=== PATIENT | female | born 1980 | race Caucasian/White ===

== ENCOUNTER → 2017-08-08 06:47 | Outpatient (CLI) | payer OTHER, SELFPAY ==
--- NOTE | 2017-08-08 06:46 | CT_ITS ---
STUDY: CT MAXILLOFACIAL SINUSES REASON FOR EXAM: Female, 37 years old. Sinusitis RADIATION DOSAGE (If Supplied By Facility): CTDIvol = ( 33.06 ) mGy, DLP = ( 730.55 ) mGycm TECHNIQUE: The patient was scanned in a multi detector CT scanner. High resolution axial imaging was performed without the administration of intravenous contrast material. Sagittal and coronal images were reconstructed. Individualized dose optimization techniques were used for this CT. COMPARISON: None. FINDINGS: FRONTAL SINUSES: Weeks retention cyst overlying the ostium of the left frontal sinus. Mild mucoperiosteal thickening within the left frontal sinus otherwise. Right frontal sinus clear. ETHMOIDAL SINUSES: B comparison thickening within the left anterior ethmoids abutting the left frontal sinus ostium. Resection of the majority of the right ethmoid sinuses up to the opening of the right frontal sinus ostium. MAXILLARY SINUSES: Circumferential mucoperiosteal thickening of the maxillary sinuses, prior antrectomy. SPHENOIDAL SINUSES: Normal aeration, without mucosal inflammatory disease. The mastoid air cells and middle ear cavities are clear. Symmetric and grossly normal features of the vestibular and acoustic apparatus of the temporal bones. Craniofacial osseous structures acutely intact. Orbital contents normal. Superficial and deep facial soft tissues normal. CT/Sinus/Facial Bone IMPRESSION: Chronic sinus disease and postsurgical changes of the sinuses as described above. Electronically Signed: Reinaldo Sparrow, at 0:02 EDT Tel , Service support ,
== END ==
PROVIDERS: Family Provider Internal Medicine; PCP Internal Medicine; Visit Provider Otolaryngology
DX: J32.1 Chronic frontal sinusitis (principal)
CPT/HCPCS: 70486

== ENCOUNTER 2017-08-28 06:04 | Day surgery (SDC) | payer OTHER, SELFPAY ==
[2017-08-28] VITALS (7 sets, daily range): BP systolic 91–126; BP diastolic 41–80; PULSE 70–80; RESP 16–18; TEMP 35.8–36.2; O2SAT 92–100; BMI 53.8
--- NOTE | 2017-08-28 06:17 | EKG12_ITS ---
Test Reason : PRE-OP Blood Pressure : / mmHG Vent. Rate : 062 BPM Atrial Rate : 062 BPM P-R Int : 152 ms QRS Dur : 102 ms QT Int : 422 ms P-R-T Axes : 050 036 044 degrees QTc Int : 428 ms Normal sinus rhythm with sinus arrhythmia Normal ECG Confirmed by HEATHER MOE, HAZEL ([id number]), purchase request editor BHARAT AU ([id number]) on 09/04/2017 10:03:52 AM Referred By: Zaire Galindo Confirmed By:HAZEL ROMERO MD
[2017-08-28 06:33] LABS: Internal QC Validated? YES +Cl - CLEAR BKGD; Pregnancy, Urine Negative Negative
[2017-08-28 06:34] LABS: Hematocrit 37.7 % (37-47); Hemoglobin 12.9 g/dl (12.0-15.0); Mean Corp Hgb Conc 34.2 g/gl (32-36); Mean Corpuscular Hgb 30.3 pg (27.0-32.0); Mean Corpuscular Volume 88.5 fL (81-99); Mean Platelet Vol. 9.5 fl (6.2-12.0); Platelet Count 245 K/mm3 (150-450); RBC Distribution Width CV 12.8 % (11.6-14.6); RBC Distribution Width SD 40.9 fl (35.1-43.9); Red Blood Count 4.26 M/mm3 (4.2-5.4); White Blood Count 6.9 K/mm3 (4.4-11.0)
[2017-08-28 06:35] LABS: Scan Indicated on CBC? Y/N NO
[2017-08-28 06:58] LABS: Anion Gap 6 (5-15); BUN 13 mg/dL (7-18); BUN/Creat Ratio 16.2 RATIO (10-20); Calcium,Total 8.5 mg/dL (8.5-10.1); Chloride 108 mmol/L (98-107); EST Glomerular Filtration Rate 85 mL/min (>60); Est Glom Filt Rate - Afr Amer 103 mL/min (>60); Estimated Creatinine Clearance 69.16 ml/min; Glucose 83 mg/dL (74-106); Potassium 3.7 mmol/L (3.5-5.1); Sodium Level 141 mmol/L (136-145)
--- NOTE | 2017-08-28 07:30 | ETH_PTH ---
PATIENT: JAROD HERRERA [place] [facility] [place][id number] AGE/SX: 37/F ROOM: RE08/28/[address]: Dr. Zaire Galindo MD : 1980 BED: DIS: 08/28/2017 SPEC #: [id number] RECD: 08/28/17 11:13 STATUS: MARIA ESTHER MADIE #: [id number] THERESA: 08/28/17 07:[address]: Zaire Galindo DEPT: SURGICAL PATHOLOGY RECD BY: Reinaldo Pittman ENTERED: 08/28/17 12:03 SP TYPE: ETH TISS OTHR DR: Dr. Marya Ye DO Tissues: Ethmoid sinus, NOS Procedures: Special Stain Group I Surgery Specimen Level IV GMS Stain (control) HEADER OPERATION: Functional endoscopic left frontal sinus surgery; left maxillary antrostomy PRE-OP DIAGNOSIS: Chronic frontal sinusitis, chronic maxillary sinusitis TISSUE SUBMITTED: Left sinus contents MICROSCOPIC DIAGNOSIS Left sinus contents: Fragments of respiratory mucosa with acute and chronic inflammation and bone. Special stain for fungi is negative for organisms; matched control is appropriate. MORRO:anna 08/31/17 MICROSCOPIC DESCRIPTION Slides are reviewed. GROSS DESCRIPTION Received in fixative is one container labeled with the patient's name and designated left sinus contents. The specimen consists of multiple irregular fragments of pink, congested soft tissue that in aggregate measure 5 x 3 x 0.8 cm. The entire specimen is submitted in four cassettes. / MORRO:anna 08/28/17 TC:2 CPT: 72819, 59818
[2017-08-28] MEDS: Lidocaine 4% 50 ML Bottle (07:50)
[2017-08-28] MEDS: Oxymetazoline 0.05% 1 SPRAY SPRAY.BTL 15 SPRAY (07:50)
--- NOTE | 2017-08-28 08:50 | OP.PCM_ITS ---
Problem List (1) Chronic frontal sinusitis Status: Chronic (2) Chronic maxillary sinusitis Status: Chronic Report of Operation Date of Procedure: 08/28/17 Pre-Operative Diagnosis: Chronic frontal and maxillary sinusitis Post-Operative Diagnosis: same Surgery/Procedure Performed:: Left endoscopic surgery of the frontal sinus, left endoscopic maxillary antrostomy Description of Surgical Findings:: Jelly is a 37-year-old female with history of chronic sinusitis and is previous sinus surgery. She continued to suffer a bandlike headache and left frontal sinus pain and CT scan showed ongoing disease of the left frontal sinus with obstruction of the frontonasal recess by an obstructing sinus cell. Revision surgery was offered in hopes of relief of this complaint and she was eager to proceed. The risks, alternatives, potential benefits, and complications were discussed at length and any questions answered to the patient and/or caregiver's satisfaction. Witnessed informed consent was obtained in the office, and the patient and/or caregiver was agreeable to proceed. Procedure went as follows: The patient was identified in the preoperative holding and brought to the operating room, was placed under general anesthesia and intubated. When appropriate anesthesia was obtained, the navigational head gear was placed and confirmed to be operational in accordance with the creping machine operator helper's directions. Pledgets soaked in a 50-50 mixture of oxymetazoline and 4% topical lidocaine were placed to decongest the nasal mucosa. These were then removed and beginning on the left side using a 0? endoscope the nasal cavity examined. The insertion of the middle turbinate and uncinate process was then injected with 1% lidocaine with 100,000 epinephrine for a 2 cc total. There is noted to be significant scar banding in obstruction of the frontal nasal recess on the left side. This was additionally injected with 1% lidocaine of 100,000 epinephrine for a total of 1 cc. Using an up-biting forceps the scar band was then removed as well as the bony septum of the anterior ethmoid air cell that was obstructing the frontonasal recess. The frontonasal sinus was then explored and a wide frontal osteotomy created. Significant separative material was aspirated and irrigated clear with saline solution. Additionally there is noted to be significant crusting and retention of debris likely due to her prior sinus stripping procedure with obliteration of the respiratory epithelium and this was suctioned clear bilaterally. There was significant stenosis and scar banding obstructing the left maxillary sinus ostia and this was then revised and widely opened with a front and back biting forceps. Upon completion pledgets soaked in oxymetazoline and 4% topical lidocaine were placed for hemostasis. This completed the procedure. An NG tube was then placed to decompress the stomach and the patient returned to anesthesia, revived and extubated having tolerated the procedure well. Type of Anesthesia:: General Anesthesiologist: Mario Almonte Special Medications: none Specimen's removed: sinus tissue Drains: none Estimated Blood Loss (mL): 50 mL Fluids Replaced: 400 mL Grafts/Implants Used: none - Complications none - Admit VTE Documentation VTE Present on Admission: No VTE Mechan Device Prophylaxis: SCD's VTE Pharm Prophylaxis ordered?: No
--- NOTE | 2017-08-28 08:50 | PCM.DC ---
- Discharge Diagnoses Current Active Problems: Current Active and Chronic Problems Chronic frontal sinusitis (Chronic) Chronic maxillary sinusitis (Chronic) You will use the following diet at home:: No restrictions Discharge Activity: Return to Normal Activity, May not drive while taking narcotic pain medications. Call your doctor if your incision/area has: Sudden Increased Bleeding Call your doctor if you observe: Fever of 101 or Higher, Uncontrolled pain Allergies/Adverse Reactions: Allergies cephalexin monohydrate [From Keflex] Allergy (Verified 08/28/17 06:38) Unknown latex Allergy (Verified 08/28/17 06:38) Rash Medications to take at Discharge Naproxen Sodium [Aleve] 440 mg PO DAILY 08/28/17 Primary Care Physician: Marya Ye DO [Primary Care Provider] - Please Follow Up With: Zaire Galindo MD When: 10 days
[2017-08-28] MEDS: Ibuprofen 400 MG Tablet PO (10:10)
== END 2017-08-28 10:37 | disposition home or self-care (01) ==
LOC: SDC 06:04 → AC 06:05
PROVIDERS: Family Provider Internal Medicine; PCP Internal Medicine; Visit Provider Otolaryngology
PROC: (CPT 31256; principal; 2017-08-28 07:00)
DX: J32.1 Chronic frontal sinusitis (principal); J32.0 Chronic maxillary sinusitis; G47.30 Sleep apnea, unspecified; J45.909 Unspecified asthma, uncomplicated; Z79.899 Other long term (current) drug therapy
CPT/HCPCS: 31256; 31276; 36415; 80048; 81025; 85027; 88305; 88312; 93005; J7120; J2405

== ENCOUNTER → 2017-11-30 10:47 | Outpatient (CLI) | payer OTHER, SELFPAY ==
--- NOTE | 2017-11-30 10:50 | RAD_ITS ---
STUDY: X-RAY CHEST REASON FOR EXAM: Female, 37 years old. Right lateral rib pain and substernal chest pain. Previous rib injury after coughing. TECHNIQUE: PA and lateral views of the chest. COMPARISON: Right RIBS, July 19, 2015. Chest, July 19, 2015. FINDINGS: The lungs are clear and expanded. There is no demonstrated pleural abnormality. Normal size heart. Normal mediastinum and iliana. Normal visualized pulmonary arteries. Normal visualized aortic arch and descending thoracic aorta. There are minimal degenerative changes of the thoracic spine. Normal visualized ribs, clavicles, and shoulders. There is no demonstrated abnormality of the visualized soft tissue structures of the upper abdomen. RAD/Chest PA and Lateral IMPRESSION: No acute cardiopulmonary disease or interval change. Electronically Signed: Marshall Brown DO at 17:13 EDT Tel [phone], Service support ,
== END ==
PROVIDERS: Family Provider Internal Medicine; PCP Internal Medicine; Visit Provider Nurse Practitioner
DX: R07.81 Pleurodynia (principal)
CPT/HCPCS: 71046

== ENCOUNTER → 2017-12-21 07:37 | Outpatient (CLI) | payer OTHER, SELFPAY ==
--- NOTE | 2017-12-21 07:45 | US_ITS ---
STUDY: RENAL ULTRASOUND - COMPLETE REASON FOR EXAM: Female, 37 years old. Right-sided abdominal pain for 4 years following drip fractures. TECHNIQUE: Ultrasound evaluation of the kidneys was performed with real-time and static norton-scale imaging. COMPARISON: None. FINDINGS: RIGHT KIDNEY: Normal location of the right kidney, which is normal in size. The right kidney measures 11.8 x 5.5 x 5.2 cm. There is a normal cortex of the right kidney. The renal cortex measures 1.7 cm. There is no right renal mass or cyst. There are no right renal calculi. There is no right hydronephrosis. DISTAL RIGHT URETER: There is non-visualization of the distal right ureter. There is no demonstrated right ureterovesical junction calculus. There is a visualized right ureteral jet. LEFT KIDNEY: Normal location of the left kidney, which is normal in size. The left kidney measures 11.8 x 5.1 x 5.8 cm. There is a normal cortex of the left kidney. The renal cortex measures 2.1 cm. There is no left renal mass or cyst. There are no left renal calculi. There is no left hydronephrosis. DISTAL LEFT URETER: There is non-visualization of the distal left ureter. There is no demonstrated left ureterovesical junction calculus. There is a visualized left ureteral jet. BLADDER: The distended urinary bladder has a volume of 509 ml. The empty urinary bladder has a volume of 57 ml. There is a normal wall thickness of the distended urinary bladder. There is no demonstrated mass within the urinary bladder. There are no demonstrated bladder calculi. US/Kidney and Bladder IMPRESSION: Normal ultrasound of the kidneys and urinary bladder. Electronically Signed: Julian Mendez MD at 23:42 EDT Tel , Service support ,
--- NOTE | 2017-12-21 07:45 | CT_ITS ---
STUDY: CT CHEST WITH CONTRAST REASON FOR EXAM: Female, 37 years old. Right sided rib pain-lower, no other med hx. RADIATION DOSAGE (If Supplied By Facility): CTDIvol = ( 18.38 ) mGy, DLP = ( 763.54 ) mGycm TECHNIQUE: Transaxial imaging was performed following intravenous administration of 100 ml of Isovue 250 contrast material. Individualized dose optimization techniques were used for this CT. COMPARISON: None. FINDINGS: The lungs are normal. There is no demonstrated pleural abnormality. Normal heart and pericardium. Normal mediastinum. Normal hilar regions. Normal enhanced pulmonary arteries. Normal aorta arch and descending thoracic aorta. There are multi-level degenerative changes of the thoracic spine. There is no demonstrated abnormality of the visualized upper abdomen. CT/Chest WITH Contrast IMPRESSION: Unremarkable enhanced CT Chest examination. Electronically Signed: Vinayak Fowler MD at 16:07 EDT Tel , Service support ,
== END ==
PROVIDERS: Family Provider Internal Medicine; PCP Internal Medicine; Referring Provider Nurse Practitioner; Visit Provider Nurse Practitioner
DX: R07.81 Pleurodynia (principal); R10.11 Right upper quadrant pain
CPT/HCPCS: 71260; 76770; Q9967

== ENCOUNTER 2018-02-02 10:45 | Outpatient (RCR) | payer OTHER, SELFPAY ==
--- OUTSIDE RECORDS SUMMARY | 2018-03-17 02:29 | XMS RPT_ITS ---
:1980 Author Organization OHIP Support Name Relationship Address Phone JHONY MONACO Unavailable [address] + [place] [address] WAYCTYJUVC Unavailable [address] + [place] [address] JHONY MONACO Unavailable Unavailable + JHONY MONACO Unavailable Unavailable + JHONY MONACO Unavailable [address] + [place] [address] WAYCTYJUVC Unavailable [address] + [place] [address] EDERJHONY CARDONA Unavailable [address] + [place] [address] WAYCTYJUVC Unavailable [address] + [place] [address] JHONY MONACO Unavailable [address] + [place] [address] Unavailable . + [place] [address] EDERJHONY CARDONA Unavailable [address] + [place] [address] [place]available . + [place] [address] EDERJHONY CARDONA Unavailable [address] + [place] [address] Unavailable . + [place] [address] JHONY MONACO Unavailable [address] + [place] [address] Unavailable . + [place] [address] EVGENY VINION INSPECTOR OF DREDGING Unavailable [address] + [place] [address] Jhony Monaco Unavailable [address] + [place] [address] Gena Kramer Unavailable [address] + [place] [address] Care Team Providers Name Role Phone KARSON, CHANTAL (INSIDE SALES REPRESENTATIVE) Attending Unavailable KARSON, CHANTAL (INSIDE SALES REPRESENTATIVE) Referring Unavailable KARSON, CHANTAL (INSIDE SALES REPRESENTATIVE) Referring Unavailable KARSON, CHANTAL (INSIDE SALES REPRESENTATIVE) Referring Unavailable TAMEKA ELIAS Attending Unavailable JADA LERNER, DR. ENGLISH Attending Unavailable JADA LERNER, DR. ENGLISH Referring Unavailable BLAYNE LERNER, DR. TRINIDAD Primary Care Unavailable [facility] Employee Attending Unavailable Galindo, Zaire Attending Unavailable Galinod, Zaire Referring Unavailable Ephraim, Marya Primary Care Unavailable Galindo, Zaire Attending Unavailable Galindo, Zaire Referring Unavailable Ephraim, Marya Primary Care Unavailable Martha Becker Attending Unavailable Ephraim, Marya Referring Unavailable Ciesa, Clemencia Attending Unavailable Ciesa, Clemencia Referring Unavailable Ephraim, Marya Primary Care Unavailable Ciesa, Clemencia Attending Unavailable Ciesa, Clemencia Referring Unavailable Ephraim, Marya Primary Care Unavailable Ciesa, Clemencia Attending Unavailable Ephraim, Marya Primary Care Unavailable Ciesa, Clemencia Attending Unavailable Ephraim, Marya Primary Care Unavailable PROBLEMS PROBLEMS DATE TYPE CONDITION / CODE ATTENDING STATUS SOURCE 12/22/2017 Active Mastodynia / NA Active [facility] N64.4(ICD-10) Main [place] Repository 12/22/2017 Active Unspecified NA Active [facility] ovarian cyst, [facility] right side / Repository N83.201(ICD-10) 08/08/2017 Unknown J32.1 - Chronic Galindo, Zaire Active [place] frontal sinusitis Community / J32.1(ICD-10) Hospital Repository PROCEDURES PROCEDURES No Procedure Records FoundRESULTS RESULTS PROGRESS Observed: 02/02/2018 Status: COMPLETED Source: [place] 8:42 AM [facility] RE[facility]IT[facility] HNO ID: [id number] Author: Tameka Elias Service: (none) Author Type: Physician Type: Progress Notes Filed: 02/02/2018 9:19 AM Note Text: Chief Complaint Patient presents with: Establish Care Wound Check: left ankle HPI Jarod R Nettle is a 37 year old female who presents here today for est care. Pt states that she is here to est care with a new provider, not happy with her former PCP and heard good things from her friend who is a patient of mine. Non smoker. Denies any SOB, chest pains, or dizziness. No bowel, Gi, or urinary concerns. She states that she tends to be more constipated. Does not take anything to treat the constipation. Has a bowel movement daily to every other day. Tries to watch diet, is going to the [facility] program through the [facility]. Denies much exercise. She is trying to change schedules so that she can have more time for her health. She lost about 80 lbs a year ago and has gained all of that weight back. States she has struggled with her weight most her life. Pt was started on Victoza in past to help jump start some weight loss, it did help, but insurance would no longer cover. Pt has been tested for celiac disease, thyroid, and other tests by previous provider. She does react to dairy products, tries to avoid dairy. Costochondritis: she states that she does not have much SOB but does have wheezing. She does use ProAir as needed. Does not get winded or SOB with climbing stairs or activity. She states that this flares up at different times of the year. Denies ever being a smoker, exposed to 2nd hand smoke. Chronic fatigue: has been following with Sleep specialist, Dr. Ramirez. She is going to be having a sleep study done next week to check for sleep apnea. Ankle: Left; got her foot stuck in a chair and fell, now has a sore and some swelling and itching, blisters around the cut. No difficulty walking. Still has continued right side pain. Has had blood work done, Renal U/S, CT chest to check ribs. Denies any improvement. Pt stated that she cracked ribs on the right side about 5 years ago. 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 Has been told that she could do Pain Management, does not want to take drugs, states that she has family members who have addiction problems and prefers to stay away from pain medications. She has not tried any PT. Does not do any stretching. Heat does help and Aleve as needed, which seem to help. Has been given Naproxen in past for the pain. She does use a stand up desk that helps. , 2 children ages 9(girl) and 7 (boy). Works in [employer] office. Past medical history, appointments, medications, allergies reviewed. Previous Medical History PAST MEDICAL HISTORY Diagnosis Date - Contact dermatitis and other eczema due to other specified agent - Depressive disorder, not elsewhere classified - Esophageal reflux Gastroesophageal reflux - Migraine, unspecified, with intractable migraine, so stated, without mention of status migrainosus Migraine Previous Surgical History PAST SURGICAL HISTORY Procedure Laterality Date - MIRENA 02/2010 inserted by , removed 2013 - PAST SURGICAL HISTORY OF wisdom teeth - RECONSTR NOSE Rhinoplasty, Staff Infection following this surgery Family History FAMILY HISTORY Problem Relation Age of Onset - Diabetes Mother - other (ENDOMETRIOSIS) Mother - Diabetes Father - Cancer Maternal Grandmother breast cancer - Diabetes Maternal Grandmother - Alzheimer's Disease Maternal Grandfather - Cancer Paternal Grandmother OVARIAN CANCER - Heart Paternal Grandmother [place] - Stroke Paternal Grandmother - Heart Paternal Grandfather - No Known Problems Daughter - No Known Problems Son - Cancer Maternal Aunt BREAST CANCER - other (ENDOMETRIOSIS) Sister - Breast Cancer Sister 34 2010, unsure if had breast cancer as committed suicide - Breast Cancer Maternal Aunt Patient Allergies ALLERGIES Allergen Reactions - Keflex [Cephalexin] Intolerance RAPID PULSE - Latex Rash - Prednisone Other: See Comments Chest tightness- dizzy- [id number]-[id number] - Seasonal Allergies Anaphylaxis Current Medications Current Outpatient Prescriptions on File Prior to Visit: PROAIR HFA 90 mcg/actuation inhaler USE 2 INHALATIONS EVERY 4-6 HOURS NEEDED FOR WHEEZING levonorgestrel (MIRENA) 20 mcg/24 hr (5 years) IUD Inserted in office MULTIVITAMIN ORAL Take by mouth. naproxen (NAPROSYN) 500 mg tablet Take 1 tablet by mouth twice daily as needed. FOR PAIN. TAKE WITH FOOD. liraglutide (VICTOZA 2-KWASI) 0.6 mg/0.1 mL (18 mg/3 mL) pncici Inject subcutaneously once daily. No current facility-administered medications on file prior to visit. Social History Social History Marital status: Spouse name: LYNDON Years of education: 14 Number of children: 2 Occupational History Occupation Employer Comment [employer] Social History Main Topics Smoking status: Never Smoker Smokeless tobacco: Never Used Alcohol use: Yes Comment: Occasionally Drug use: No Sexual activity: Yes Partners with: Male control/protection: Condom, IUD EXAM: BP 112/70 Pulse 74 Resp 16 Ht 167.6 cm (5' 6) Wt 129.7 kg (286 lb) BMI 46.16 kg/m? General Appearance: Well appearing, alert, in no acute distress, well-hydrated, well nourished. and Morbidly obese. Neck: Supple, no adenopathy; thyroid symmetric, normal size. Lungs: lungs clear to auscultation. No wheezing, rhonchi, rales. Heart: RRR without murmur, gallop, or rubs. No ectopy. Abdomen: right ribs; tender on palpation posterior ribs. Extremities: left ankle; slight abrasion, mild surrounding erythema and hives/blisters Health Maintenance List PAP EVERY 5 YEARS due on 06/12/2021 HPV EVERY 5 YEARS due on 06/12/2021 DTAP,TDAP,TD(2 - Td) due on 02/02/2026 INFLUENZA Completed Data reviewed none ASSESSMENT/PLAN: 1. Establishing care with new doctor, encounter for - ICD9: V65.8, ICD10: Z76.89 (primary diagnosis) Recommend healthy eating and regular exercise 2. Costochondritis - ICD9: 733.6, ICD10: M94.0 Continue with ProAir 3. Chronic fatigue - ICD9: 780.79, ICD10: R53.82 Check TSH Continue as planned with Sleep study Continue to follow with Dr. Ramirez 4. Rib pain on right side - ICD9: 786.50, ICD10: R07.81 Consult Physical Therapy 5. Obesity, Class III, BMI 40-49.9 (morbid obesity) (HCC) - ICD9: 278.01, ICD10: E66.01 E coaching referral placed Continue with [facility] Recommend healthy diet, more plant based, and exercise 6. Sore on ankle - ICD9: 709.9, ICD10: L98.9 Start kenalog Cream Follow up in 2-3 months. I agree with the Chief Complaint, ROS, and Past Histories independently gathered by the clinical direct support worker and the remaining scribed note accurately describes my personal service to the patient. Tameka Elias MD The documentation for this note was completed by Melisa Rose Ma acting as scribe for Tameka Elias MD. February 02, 2018 8:42 AM. SEBASTIEN Observed: 02/02/2018 Status: COMPLETED Source: [place] 8:40 AM [facility] REPOSITORY Office Visit (FAMPWS) JAROD MONACO ([id number]) 1980 F Date Time Provider Department 02/02/18 8:40 AM TAMEKA ELIAS FAMPWS During your visit today, we recorded the following information about you: Pulse Respiration Blood pressure Weight 74/minute 16/minute 112/70 129.7 kg Height 1.676 m Tameka Elias MD 02/02/2018 9:19 AM Signed Chief Complaint Patient presents with: Establish Care Wound Check: left ankle HPI Jarod Monaco is a 37 year old female who presents here today for est care. Pt states that she is here to est care with a new provider, not happy with her former PCP and heard good things from her friend who is a patient of mine. Non smoker. Denies any SOB, chest pains, or dizziness. No bowel, Gi, or urinary concerns. She states that she tends to be more constipated. Does not take anything to treat the constipation. Has a bowel movement daily to every other day. Tries to watch diet, is going to the [facility] program through the [facility]. Denies much exercise. She is trying to change schedules so that she can have more time for her health. She lost about 80 lbs a year ago and has gained all of that weight back. States she has struggled with her weight most her life. Pt was started on Victoza in past to help jump start some weight loss, it did help, but insurance would no longer cover. Pt has been tested for celiac disease, thyroid, and other tests by previous provider. She does react to dairy products, tries to avoid dairy. Costochondritis: she states that she does not have much SOB but does have wheezing. She does use ProAir as needed. Does not get winded or SOB with climbing stairs or activity. She states that this flares up at different times of the year. Denies ever being a smoker, exposed to 2nd hand smoke. Chronic fatigue: has been following with Sleep specialist, Dr. Ramirez. She is going to be having a sleep study done next week to check for sleep apnea. Ankle: Left; got her foot stuck in a chair and fell, now has a sore and some swelling and itching, blisters around the cut. No difficulty walking. Still has continued right side pain. Has had blood work done, Renal U/S, CT chest to check ribs. Denies any improvement. Pt stated that she cracked ribs on the right side about 5 years ago. 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 Has been told that she could do Pain Management, does not want to take drugs, states that she has family members who have addiction problems and prefers to stay away from pain medications. She has not tried any PT. Does not do any stretching. Heat does help and Aleve as needed, which seem to help. Has been given Naproxen in past for the pain. She does use a stand up desk that helps. , 2 children ages 9(girl) and 7 (boy). Works in [employer] office. Past medical history, appointments, medications, allergies reviewed. Previous Medical History PAST MEDICAL HISTORY Diagnosis Date - Contact dermatitis and other eczema due to other specified agent - Depressive disorder, not elsewhere classified - Esophageal reflux Gastroesophageal reflux - Migraine, unspecified, with intractable migraine, so stated, without mention of status migrainosus Migraine Previous Surgical History PAST SURGICAL HISTORY Procedure Laterality Date - MIRENA 02/2010 inserted by , removed 2013 - PAST SURGICAL HISTORY OF wisdom teeth - RECONSTR NOSE Rhinoplasty, Staff Infection following this surgery Family History FAMILY HISTORY Problem Relation Age of Onset - Diabetes Mother - other (ENDOMETRIOSIS) Mother - Diabetes Father - Cancer Maternal Grandmother breast cancer - Diabetes Maternal Grandmother - Alzheimer's Disease Maternal Grandfather - Cancer Paternal Grandmother OVARIAN CANCER - Heart Paternal Grandmother AK - Stroke Paternal Grandmother - Heart Paternal Grandfather - No Known Problems Daughter - No Known Problems Son - Cancer Maternal Aunt BREAST CANCER - other (ENDOMETRIOSIS) Sister - Breast Cancer Sister 34 2010, unsure if had breast cancer as committed suicide - Breast Cancer Maternal Aunt Patient Allergies ALLERGIES Allergen Reactions - Keflex [Cephalexin] Intolerance RAPID PULSE - Latex Rash - Prednisone Other: See Comments Chest tightness- dizzy- BHS-dvcowgm-gbayfnbx - Seasonal Allergies Anaphylaxis Current Medications Current Outpatient Prescriptions on File Prior to Visit: PROAIR HFA 90 mcg/actuation inhaler USE 2 INHALATIONS EVERY 4-6 HOURS NEEDED FOR WHEEZING levonorgestrel (MIRENA) 20 mcg/24 hr (5 years) IUD Inserted in office MULTIVITAMIN ORAL Take by mouth. naproxen (NAPROSYN) 500 mg tablet Take 1 tablet by mouth twice daily as needed. FOR PAIN. TAKE WITH FOOD. liraglutide (VICTOZA 2-KWASI) 0.6 mg/0.1 mL (18 mg/3 mL) pnij Inject subcutaneously once daily. No current facility-administered medications on file prior to visit. Social History Social History Marital status: Spouse name: LYNDON Years of education: 14 Number of children: 2 Occupational History Occupation Employer Comment [employer] Social History Main Topics Smoking status: Never Smoker Smokeless tobacco: Never Used Alcohol use: Yes Comment: Occasionally Drug use: No Sexual activity: Yes Partners with: Male control/protection: Condom, IUD EXAM: BP 112/70 Pulse 74 Resp 16 Ht 167.6 cm (5' 6) Wt 129.7 kg (286 lb) BMI 46.16 kg/m? General Appearance: Well appearing, alert, in no acute distress, well-hydrated, well nourished. and Morbidly obese. Neck: Supple, no adenopathy; thyroid symmetric, normal size. Lungs: lungs clear to auscultation. No wheezing, rhonchi, rales. Heart: RRR without murmur, gallop, or rubs. No ectopy. Abdomen: right ribs; tender on palpation posterior ribs. Extremities: left ankle; slight abrasion, mild surrounding erythema and hives/blisters Health Maintenance List PAP EVERY 5 YEARS due on 06/12/2021 HPV EVERY 5 YEARS due on 06/12/2021 DTAP,TDAP,TD(2 - Td) due on 02/02/2026 INFLUENZA Completed Data reviewed none ASSESSMENT/PLAN: 1. Establishing care with new doctor, encounter for - ICD9: V65.8, ICD10: Z76.89 (primary diagnosis) Recommend healthy eating and regular exercise 2. Costochondritis - ICD9: 733.6, ICD10: M94.0 Continue with ProAir 3. Chronic fatigue - ICD9: 780.79, ICD10: R53.82 Check TSH Continue as planned with Sleep study Continue to follow with Dr. Ramirez 4. Rib pain on right side - ICD9: 786.50, ICD10: R07.81 Consult Physical Therapy 5. Obesity, Class III, BMI 40-49.9 (morbid obesity) (HCC) - ICD9: 278.01, ICD10: E66.01 E coaching referral placed Continue with [facility] Recommend healthy diet, more plant based, and exercise 6. Sore on ankle - ICD9: 709.9, ICD10: L98.9 Start kenalog Cream Follow up in 2-3 months. I agree with the Chief Complaint, ROS, and Past Histories independently gathered by the clinical direct support worker and the remaining scribed note accurately describes my personal service to the patient. Tameka Elias MD The documentation for this note was completed by Melisa Rose Ma acting as scribe for Tameka Elias MD. February 02, 2018 8:42 AM. Referring Provider: SELF [200] Allergies As of Date: 02/02/2018 Noted Allergy Reaction KEFLEX (CEPHALEXIN) 02/26/2005 5 - Intolerance Comments: RAPID PULSE LATEX 02/26/2005 2 - Rash PREDNISONE 02/09/2014 14 - Other: See Comments Comments: Chest tightness- dizzy- [id number]-vxywbgzx SEASONAL ALLERGIES 11/29/2009 10 - Anaphylaxis Date Reviewed: 02/02/2018 Reviewed by: Melisa Rose Ma - Fully Assessed Reason for Visit: Establish Care [42] Wound Check [133] Cmt: left ankle Primary Visit Diagnosis:Establishing care with new doctor, encounter for [Z76.89] Other Visit Diagnoses:Costochondritis [M94.0] Chronic fatigue [R53.82] Rib pain on right side [R07.81] Obesity, Class III, BMI 40-49.9 (morbid obesity) (HCC) [E66.01] Sore on ankle [L98.9] Order(s):CONSULT TO [facility] [5444982] Order #: [id number]: 1 CONSULT TO PHYSICAL THERAPY [9032] Order #: [id number]: 1 triamcinolone (KENALOG) 0.025 % creamApply 1 application to affected area twice daily.Disp: 30 gRfl: 0 TSH BLD [SQTSH] Order #: [id number] FUTURE T4/FTI/T4U [QPR0OIT] Order #: [id number] FUTURE Prescriptions as of 02/02/2018 Sig: PROAIR HFA 90 MCG/ACTUATION A* USE 2 INHALATIONS EVERY 4-6 H* LEVONORGESTREL 20 MCG/24 HR (* Inserted in office MULTIVITAMIN ORAL Take by mouth. NAPROXEN 500 MG TABLET Take 1 tablet by mouth twice * TRIAMCINOLONE ACETONIDE 0.025* Apply 1 application to affect* Problem List As Of Date 02/02/2018 Noted Resolved Supervision of other normal [Z34.80] INVALID FOR*02/06/2010 Depressive disorder, not elsewhere classified [* Esophageal reflux [K21.9] More... Migraine NOS/intractable [G43.919] More... Pelvic pain in female [R10.2] INVALID FOR*06/12/2016 Chronic post-traumatic headache [G44.329] INVALID FOR* Paresthesia of skin [R20.2] INVALID FOR* Prescriptions ordered this encounter Disp Refills Start End TRIAMCINOLONE ACETONIDE 0.025 % TOPI* 30 g 0 02/02/2018 Route: TOPICAL Sig: Apply 1 application to affected area twice daily. Medications Discontinued During This Encounter liraglutide (VICTOZA 2-KWASI) 0.6 mg/0* 02/02/2018 Class: Historical Med Route: SUBCUTANEOUS Sig: Inject subcutaneously once daily. Disc: Reason for discontinue is not on file. Letter Text . [facility] AUTHORIZATION FOR THE RELEASE OF MEDICAL INFORMATION FROM OTHER HEALTHCARE FACILITIES [facility] [address] [place], [place] [address] Name: Jarod Monaco Date of : [address] [place], [place] [id number] (home) Reason for Disclosure: Continuity of Care. Release Information From: Name of Provider/Facility: [facility] [address] Street: City: State: Zip: Fax: Phone: Release Information To: Office Receiving: Tameka Elias MD PLEASE FAX TO: I hereby authorize to release the health information indicated below that is contained in my patient records to the Recipient named above. I understand and acknowledge that this may include treatment for physical and mental illness, alcohol/drug abuse and or HIV/AIDS test results or diagnosis. This authorization does not include permission to release outpatient Psychotherapy Notes* as defined below. The release of Psychotherapy Notes requires a separate authorization. REPORTS REQUESTED: Women's Health Reports: Paps , HPV, Mammograms, Pathologies Immunization Reports: All shot records Lab Reports: All past labs Diabetes Reports: A1C report, Last Eye Exam, Micro/Creat Ratio (urine albumin screening) This consent is subject to revocation at any time except to the extent the action has been taken thereon. This authorization and consent will in one year from the date of authorization written below. Your health care (or payment for care) will not be affected by whether or not you sign this authorization. Once your health care information is released, re-disclosure of your health care information by the Recipient my no longer be protected by law. Signature of Patient/Legal Guardian Printed Name Date Signed: ____/ / Relationship if not Patient If other than patient?s signature, a copy of the legal papers verifying authority (e.g. Power of Smoke Eater or Certificate) MUST accompany the authorization when presented. Exception: parent if signing for patient under age 18. *Psychotherapy Notes defined as notes that document private, joint, group or family counseling sessions that are from the rest of a patient?s medical record. Encounter Status:Closed by TAMEKA ELIAS MD on 02/02/18 [facility]CO Observed: 12/22/2017 Status: COMPLETED Source: [place] 10:40 AM [facility] REPOSITORY [facility] ID: [id number] Author: Mammography Coordinator Service: (none) Author Type: Physician Type: Letter Filed: 12/23/2017 11:31 PM Note Text: December 22, 2017 PID: [id number] Jarod Monaco [address] [place] [address] Dear Ms. Monaco, We are pleased to inform you that the results of your recent breast imaging exam on 12/22/2017 are normal and we recommend that you return to your annual screening Mammography schedule. Early detection of cancer is very important. We also understand recommendations regarding breast cancer screening are controversial. Please discuss with your primary care provider which strategy is best for you and whether a mammogram is right for you. Your imaging studies and report will be kept on file at [facility] as part of your permanent medical record and are available for your continuing care. Thank you for allowing us to help in meeting your health care needs. Sincerely, Dr. Bardales Interpreting Radiologist [facility] (Return to Annual Mammogram schedule) PROGRESS Observed: 12/22/2017 Status: COMPLETED Source: [place] 9:33 AM [facility] REPOSITORY HNO ID: [id number] Author: Duke Donis Service: (none) Author Type: Cord Splicer Type: Progress Notes Filed: 12/22/2017 9:33 AM Note Text: Radiology Service Progress Note PATIENT NAME: Jarod Mnoaco DATE OF SERVICE: December 22, 2017 TIME: 9:33 AM PATIENT IDENTITY VERIFICATION COMPLETED USING TWO (2) METHODS: Patient confirmed name verbally and Date of . PATIENT GENDER DATA: Female. status: : No status: N/A PATIENT RELEVANT IMPLANT DATA REVIEWED: Not Applicable RADIOLOGY DEPARTMENT: Ultrasound PERIPHERAL IV DATA: Not applicable SIGNED BY: DUKE DONIS RDMS RVT December 22, 2017 9:[address] [facility] US BREAST LTD Observed: 12/22/2017 Status: F Source: [place] RT 9:32 AM [facility] REPOSITORY * * *Final Report* * * DATE OF EXAM: Dec 22 2017 9:32AM [facility] [id number] - [facility] US BREAST LTD RT / PROCEDURE REASON: Breast pain * * * * Physician Interpretation * * * * #[id number] - [facility] US BREAST LTD RT ULTRASOUND OF RIGHT BREAST: 12/22/2017 HISTORY: Breast Pain. RESULT: No prior exams were available for comparison. Ultrasound of the right breast was performed. [place] scale images of the real-time examination were reviewed. IMPRESSION: NEGATIVE There is no sonographic evidence of malignancy. There is no abnormality seen in the right breast to correspond with the mammography finding. Sofy kent/pencheyanne:12/22/2017 10:41:17 Automobile Service Writer: Duke Donis, [facility] Ultrasound BI-RADS: 1 Negative Multiple national specialty organizations have released breast cancer screening guidelines for women at average risk for developing breast cancer - guidelines that are based on both evidence and opinion, yet differ on when to start and how often to screen for breast cancer. With representation from Breast Imaging, Internal Medicine, Women's Health, Family Medicine, and Medical/Surgical Oncology, the [facility] has carefully reviewed the data and reached the following consensus: 1) All women should engage in shared decision-making with their providers to decide when to start and how often to screen; 2) All women should have the opportunity to start screening mammography at age 40; 3) For women ages 45-55, we recommend annual screening mammograms; 4) For women ages 55 and over, we support both the transition from an annual to a biennial interval if this aligns more with patient's values and preferences, or continuation with annual screening; 5) All women should discuss with their providers when to stop screening mammograms. Statistical Modeler: Eran Transcribe Date/Time: Dec 22 2017 9:04A Dictated by : SOFY BARDALES DO This examination was interpreted and the report reviewed and electronically signed by: SOFY BARDALES DO on Dec 22 2017 10:41AM EST [id number] [facility] BREAST L[facility] Observed: 12/22/2017 Status: F Source: [facility] 9:32 AM [facility] REPOSITORY * * *Final Report* * * DATE OF EXAM: Dec 22 2017 9:32AM WRU 0593 - [facility] BREAST [facility] LT / PROCEDURE REASON: Breast pain * * * * Physician Interpretation * * * * #[id number] - [facility] BREAST [facility] LT ULTRASOUND OF LEFT BREAST: 12/22/2017 HISTORY: Breast Pain. RESULT: No prior exams were available for comparison. Ultrasound of the left breast was performed. Knutson scale images of the real-time examination were reviewed. IMPRESSION: NEGATIVE There is no sonographic evidence of malignancy. There is no abnormality seen in the left breast to correspond with the pain. There is no abnormality seen in the left breast to correspond with the mammography finding. Sofy kent/eran:12/22/2017 10:42:56 Automobile Service Writer: Duke Donis [facility] Ultrasound BI-RADS: 1 Negative Multiple national specialty organizations have released breast cancer screening guidelines for women at average risk for developing breast cancer - guidelines that are based on both evidence and opinion, yet differ on when to start and how often to screen for breast cancer. With representation from Breast Imaging, Internal Medicine, Women's Health, Family Medicine, and Medical/Surgical Oncology, the [facility] has carefully reviewed the data and reached the following consensus: 1) All women should engage in shared decision-making with their providers to decide when to start and how often to screen; 2) All women should have the opportunity to start screening mammography at age 40; 3) For women ages 45-55, we recommend annual screening mammograms; 4) For women ages 55 and over, we support both the transition from an annual to a biennial interval if this aligns more with patient's values and preferences, or continuation with annual screening; 5) All women should discuss with their providers when to stop screening mammograms. Statistical Modeler: Eran Transcribe Date/Time: Dec 22 2017 9:04A Dictated by : SOFY BARDALES DO This examination was interpreted and the report reviewed and electronically signed by: SOFY BARDALES DO on Dec 22 2017 10:42AM EST [id number] [facility]MTIAZ Observed: 12/22/2017 Status: F Source: [place] 8:35 AM [facility] REPOSITORY * * *Final Report* * * DATE OF EXAM: Dec 22 2017 8:35AM [facility] 0620 - [facility] DIAGNOSTIC [facility]Z / PROCEDURE REASON: Breast pain * * * * Physician Interpretation * * * * RESULT: #[id number] - [facility] DI[facility] BILATERAL DIGITAL DIAGNOSTIC MAMMOGRAM WITH CAD: 12/22/2017 HISTORY: Breast Pain\abnormal mammogram. RESULT: TECHNIQUE: The study was acquired using full field digital technology and interpreted from soft copy. Current study was also evaluated with a Computer Aided Detection (CAD). Comparison is made to exams dated: 07/03/2016 mammogram - [facility], 06/12/2016 mammogram, 06/11/2015 mammogram - [facility], and 11/21/2014 mammogram - [facility]. There are scattered fibroglandular elements in both breasts. There is a benign asymmetry in the right breast middle depth upper region seen on the mediolateral oblique view only. There is a benign asymmetry in the left breast upper inner aspect posterior depth. No other significant masses or calcifications are seen in either breast. IMPRESSION: BENIGN FINDING There is no abnormality seen in the left breast to correspond with the pain. There is no mammographic evidence of malignancy. Areas of fibroglandular tissue are noted corresponding to the areas of asymmetry in each breast. Return to annual mammogram screening schedule is recommended. Sofy Bardales D.O. rl/:12/22/2017 10:40:42 Automobile Service Writer: Angella LOYOLA)(Charo), [facility] letter sent: Return to Annual Mammogram BI-RADS: 2 Benign finding Multiple national specialty organizations have released breast cancer screening guidelines for women at average risk for developing breast cancer - guidelines that are based on both evidence and opinion, yet differ on when to start and how often to screen for breast cancer. With representation from Breast Imaging, Internal Medicine, Women's Health, Family Medicine, and Medical/Surgical Oncology, the [facility] has carefully reviewed the data and reached the following consensus: 1) All women should engage in shared decision-making with their providers to decide when to start and how often to screen; 2) All women should have the opportunity to start screening mammography at age 40; 3) For women ages 45-55, we recommend annual screening mammograms; 4) For women ages 55 and over, we support both the transition from an annual to a biennial interval if this aligns more with patient's values and preferences, or continuation with annual screening; 5) All women should discuss with their providers when to stop screening mammograms. Statistical Modeler: Eran Transcribe Date/Time: Dec 22 2017 8:24A Dictated by: SOFY BARDALES DO This examination was interpreted and the report reviewed and electronically signed by: SOFY BARDALES DO on Dec 22 2017 10:40AM EST [id number] PROGRESS Observed: 12/22/2017 Status: COMPLETED Source: [place] 8:24 AM [facility] REPOSITORY O ID: [id number] Author: Duke Donis Service: (none) Author Type: Cord Splicer Type: Progress Notes Filed: 12/22/2017 8:24 AM Note Text: Radiology Service Progress Note PATIENT NAME: Jarod Monaco DATE OF SERVICE: December 22, 2017 TIME: 8:24 AM PATIENT IDENTITY VERIFICATION COMPLETED USING TWO (2) METHODS: Patient confirmed name verbally and Date of . PATIENT GENDER DATA: Female. status: : No status: N/A PATIENT RELEVANT IMPLANT DATA REVIEWED: Not Applicable RADIOLOGY DEPARTMENT: Ultrasound PERIPHERAL IV DATA: Not applicable SIGNED BY: DUKE DONIS RDMS RVT December 22, 2017 8:24 AM US FEMALE PELVIS Observed: 12/22/2017 Status: F Source: [place] TRANSVAG 8:23 AM [facility] REPOSITORY * * *Final Report* * * DATE OF EXAM: Dec 22 2017 8:23AM WRU 1060 - US FEMALE PELVIS TRANSVAG / PROCEDURE REASON: Cyst of right ovary * * * * Physician Interpretation * * * * EXAMINATION: TRANSVAGINAL AND LIMITED TRANSABDOMINAL PELVIC ULTRASOUND CLINICAL HISTORY: IUD. Fibroid. TECHNIQUE: Sonography of the pelvis was performed by transvaginal and transabdominal (limited) techniques. Images were obtained and stored in a permanent archive. MQ: UFP_1 COMPARISON: 09/04/2016 RESULT: Uterus size: 9.3 x 6.2 x 3.5 cm -Orientation: Anteverted -Myometrium: Normal sonographic appearance. -Endometrial echo complex: 0.7 cm. Upper uterine body submucosal fibroid toward the left measures 1.3 x 1.5 x 0.9 cm. IUD is seen in good position within the endometrium. -Cervix: normal Right ovary: Not seen with the transabdominal or endovaginal probe. Left ovary: Not seen with the transabdominal or endovaginal probe. No evidence of free pelvic fluid or pathologic adnexal mass. IMPRESSION: IUD in good position. Submucosal fibroid. Nonvisualization of the ovaries. No evidence of free fluid or pathologic adnexal mass. Statistical Modeler: [facility] Transcribe Date/Time: Dec 23 2017 3:27P Dictated by : DEE DEE MONTALVO MD This examination was interpreted and the report reviewed and electronically signed by: DEE DEE MONTALVO MD on Dec 23 2017 3:30PM EST [id number] CHEST WITH CONTRAST Observed: 12/21/2017 Status: F Source: [place] 7:[address] [facility] REPOSITORY [facility] Imaging [facility] [place] [address] Chest WITH Contrast MR#: [id number] Acct: [id number] Name: JAROD MONACO Rep #: [id number] : 1980 F 37 From: Vinayak Fowler PCP: Marya Ye DO Status: REG CLI Study: Chest WITH Contrast Date of Exam: 12/21/17 Exam# [id number] Ordering Dr: Clemencia Ramírez SURGERY NURSE-C STUDY: CT CHEST WITH CONTRAST REASON FOR EXAM: Female, 37 years old. Right sided rib pain-lower, no other med hx. RADIATION DOSAGE (If Supplied By Facility): CTDIvol = ( 18.38 ) mGy, DLP = ( 763.54 ) mGycm TECHNIQUE: Transaxial imaging was performed following intravenous administration of 100 ml of Isovue 250 contrast material. Individualized dose optimization techniques were used for this CT. COMPARISON: None. FINDINGS: The lungs are normal. There is no demonstrated pleural abnormality. Normal heart and pericardium. Normal mediastinum. Normal hilar regions. Normal enhanced pulmonary arteries. Normal aorta arch and descending thoracic aorta. There are multi-level degenerative changes of the thoracic spine. There is no demonstrated abnormality of the visualized upper abdomen. CT/Chest WITH Contrast IMPRESSION: Unremarkable enhanced CT Chest examination. Electronically Signed: Vinayak Fowler MD at 16:07 EDT Tel , Service support , CC: Clemencia Ramírez NP; Marya Ye DO Statistical Modeler: Signed KIDNEY AND BLADDER Observed: 12/21/2017 Status: F Source: [place] 7:[address] [facility] REPOSITORY [facility] Imaging Services [address] [place] [id number] Kidney and Bladder MR#: [id number] Acct: [id number] Name: JAROD MONACO Rep #: [id number] : 1980 F 37 From: Julian Whipple MD PCP: Marya Ye DO Status: REG CLI Study: Kidney and Bladder Date of Exam: 12/21/17 Exam# [id number] Ordering Dr: Clemencia RamírezC ADDENDUM by JULIAN WHIPPLE MD on 12/21/17 at 2343 ADDENDUM Please note that there is a small post void residue. Electronically Signed: Julian Whipple MD at 23:43 EDT Tel , Service support , 12/21/17 2343 Date cc: Clemencia Ramírez NP; Marya Ye DO * Signed ADDENDUM by JULIAN WHIPPLE MD on 12/21/17 at 2343 US/Kidney and Bladder 12/21/17 2350 Date cc: Clemencia Ramírez NP; Marya Ye DO * Signed STUDY: RENAL ULTRASOUND - COMPLETE REASON FOR EXAM: Female, 37 years old. Right-sided abdominal pain for 4 years following drip fractures. TECHNIQUE: Ultrasound evaluation of the kidneys was performed with real-time and static norton-scale imaging. COMPARISON: None. FINDINGS: RIGHT KIDNEY: Normal location of the right kidney, which is normal in size. The right kidney measures 11.8 x 5.5 x 5.2 cm. There is a normal cortex of the right kidney. The renal cortex measures 1.7 cm. There is no right renal mass or cyst. There are no right renal calculi. There is no right hydronephrosis. DISTAL RIGHT URETER: There is non-visualization of the distal right ureter. There is no demonstrated right ureterovesical junction calculus. There is a visualized right ureteral jet. LEFT KIDNEY: Normal location of the left kidney, which is normal in size. The left kidney measures 11.8 x 5.1 x 5.8 cm. There is a normal cortex of the left kidney. The renal cortex measures 2.1 cm. There is no left renal mass or cyst. There are no left renal calculi. There is no left hydronephrosis. DISTAL LEFT URETER: There is non-visualization of the distal left ureter. There is no demonstrated left ureterovesical junction calculus. There is a visualized left ureteral jet. BLADDER: The distended urinary bladder has a volume of 509 ml. The empty urinary bladder has a volume of 57 ml. There is a normal wall thickness of the distended urinary bladder. There is no demonstrated mass within the urinary bladder. There are no demonstrated bladder calculi. US/Kidney and Bladder IMPRESSION: Normal ultrasound of the kidneys and urinary bladder. Electronically Signed: Julian Whipple MD at 23:42 EDT Tel , Service support , CC: Clemencia Ramírez NP; Marya Ye DO Statistical Modeler: Signed PROGRESS Observed: 12/11/2017 Status: COMPLETED Source: [place] 9:39 AM [facility] REPOSITORY O ID: [id number] Author: Chantal Nickcalf Service: (none) Author Type: Nurse Practitioner Type: Progress Notes Filed: 12/11/2017 10:17 AM Note Text: Jarod Monaco is a 37 year old who presents for her annual gynecologic exam with complaints, breast pain. Menses: no menses - Mirena IUD. Contraception: IUD HPV vaccine: N/A Last Pap: 2017 normal HPV: negative History of abnormal pap: No Last mammogram: 2017normal Sexually active: Yes Pain with intercourse: No Postcoital bleeding: No Obstetric History T2 L2 SAB1 TAB0 Ectopic0 Multiple0 Live Births2 PAST MEDICAL HISTORY Diagnosis Date - Contact dermatitis and other eczema due to other specified agent - Depressive disorder, not elsewhere classified - Esophageal reflux Gastroesophageal reflux - Migraine, unspecified, with intractable migraine, so stated, without mention of status migrainosus Migraine PAST SURGICAL HISTORY Procedure Laterality Date - MIRENA 02/2010 inserted by , removed 2013 - PAST SURGICAL HISTORY OF wisdom teeth - RECONSTR NOSE Rhinoplasty FAMILY HISTORY Problem Relation Age of Onset - Diabetes Mother - other (ENDOMETRIOSIS) Mother - Diabetes Father - Cancer Maternal Grandmother breast cancer - Diabetes Maternal Grandmother - Cancer Paternal Grandmother OVARIAN CANCER - Heart Paternal Grandmother [place] - Heart Paternal Grandfather - Cancer Maternal Aunt BREAST CANCER - other (ENDOMETRIOSIS) Sister - Breast Cancer Sister 34 2010, unsure if had breast cancer as committed suicide SOCIAL HISTORY Social History Substance Use Topics - Smoking status: Never Smoker - Smokeless tobacco: Never Used - Alcohol use Yes Comment: Occasionally REVIEW OF SYSTEMS Abdomen: No abdominal pain, nausea, vomiting, diarrhea, or constipation. No bloating, early satiety, indigestion, or increased flatulence. Bladder: No dysuria, gross hematuria, urinary frequency, urinary urgency, or incontinence. Breast: No breast lumps, nipple d/c, overlying skin changes, redness or skin retraction. Allergies and current medication updated:Yes EXAM: BP 118/76 Ht 5' 6 (1.68m) Wt 290 lb (131.5kg) BMI 46.83 kg/(m2). GENERAL: pleasant, female in no apparent distress HEENT: Normocephalic, atraumatic, mucus membranes moist and no lesions NECK: Supple, full range of motion, no adenopathy and thyroid normal DERMATOLOGY: Normal, without lesions, non-icteric and non-hirsute BREAST: soft, symmetric, no dominant mass, normal nipple-areolar complex, no lymphadenopathy and no nipple discharge.+tenderness CHEST: Normal inspiratory effort ABDOMEN: soft, non-tender and no masses PELVIC: external genitalia normal, normal Bartholin's glands, urethra, [place]'s glands, no vulvar lesions, no cervical lesions, good vaginal support, physiologic discharge present, normal appearing perineal body and perianal region, well estrogenized. +IUD string visualized BIMANUAL: uterus normal size, shape and consistency, no adnexal masses and non-tender RECTOVAGINAL: deferred. NEURO: alert and oriented x3,exam grossly non-focal EXTREMITIES: normal ASSESSMENT/PLAN: 1) Health maintenance: Pap/HPV up to date. Nutrition, exercise and routine health maintenance exams reviewed. Calcium/Vitamin D supplementation information provided. 2) Contraception: IUD. Contraceptive options reviewed and information provided. 3) STD screening: Declined STD check. 4) Follow up one year or sooner as needed Chantal Ty APRN.LIBAN CNOV Observed: 12/11/2017 Status: COMPLETED Source: [place] 9:30 AM [facility] REPOSITORY Office Visit (WOOB) JAROD MONACO ([id number]) 1980 F Date Time Provider Department 12/11/17 9:30 AM CHANTAL TY (LIBAN) WOOB During your visit today, we recorded the following information about you: Blood pressure Weight Height 118/76 131.5 kg 1.676 m Fabyhudson Vickers Mo 12/11/2017 9:51 AM Signed Manager Fitness offered: Patient declines. Chantal Ty APRN.CNP 12/11/2017 10:17 AM Signed Jarod Monaco is a 37 year old who presents for her annual gynecologic exam with complaints, breast pain. Menses: no menses - Mirena IUD. Contraception: IUD HPV vaccine: N/A Last Pap: 2016 normal HPV: negative History of abnormal pap: No Last mammogram: 2017normal Sexually active: Yes Pain with intercourse: No Postcoital bleeding: No Obstetric History T2 L2 SAB1 TAB0 Ectopic0 Multiple0 Live Births2 PAST MEDICAL HISTORY Diagnosis Date - Contact dermatitis and other eczema due to other specified agent - Depressive disorder, not elsewhere classified - Esophageal reflux Gastroesophageal reflux - Migraine, unspecified, with intractable migraine, so stated, without mention of status migrainosus Migraine PAST SURGICAL HISTORY Procedure Laterality Date - MIRENA 02/2010 inserted by , removed 2013 - PAST SURGICAL HISTORY OF wisdom teeth - RECONSTR NOSE Rhinoplasty FAMILY HISTORY Problem Relation Age of Onset - Diabetes Mother - other (ENDOMETRIOSIS) Mother - Diabetes Father - Cancer Maternal Grandmother breast cancer - Diabetes Maternal Grandmother - Cancer Paternal Grandmother OVARIAN CANCER - Heart Paternal Grandmother [place] - Heart Paternal Grandfather - Cancer Maternal Aunt BREAST CANCER - other (ENDOMETRIOSIS) Sister - Breast Cancer Sister 34 2010, unsure if had breast cancer as committed suicide SOCIAL HISTORY Social History Substance Use Topics - Smoking status: Never Smoker - Smokeless tobacco: Never Used - Alcohol use Yes Comment: Occasionally REVIEW OF SYSTEMS Abdomen: No abdominal pain, nausea, vomiting, diarrhea, or constipation. No bloating, early satiety, indigestion, or increased flatulence. Bladder: No dysuria, gross hematuria, urinary frequency, urinary urgency, or incontinence. Breast: No breast lumps, nipple d/c, overlying skin changes, redness or skin retraction. Allergies and current medication updated:Yes EXAM: BP 118/76 Ht 5' 6 (1.68m) Wt 290 lb (131.5kg) BMI 46.83 kg/(m2). GENERAL: pleasant, female in no apparent distress HEENT: Normocephalic, atraumatic, mucus membranes moist and no lesions NECK: Supple, full range of motion, no adenopathy and thyroid normal DERMATOLOGY: Normal, without lesions, non-icteric and non-hirsute BREAST: soft, symmetric, no dominant mass, normal nipple-areolar complex, no lymphadenopathy and no nipple discharge.+tenderness CHEST: Normal inspiratory effort ABDOMEN: soft, non-tender and no masses PELVIC: external genitalia normal, normal Bartholin's glands, urethra, [place]'s glands, no vulvar lesions, no cervical lesions, good vaginal support, physiologic discharge present, normal appearing perineal body and perianal region, well estrogenized. +IUD string visualized BIMANUAL: uterus normal size, shape and consistency, no adnexal masses and non-tender RECTOVAGINAL: deferred. NEURO: alert and oriented x3,exam grossly non-focal EXTREMITIES: normal ASSESSMENT/PLAN: 1) Health maintenance: Pap/HPV up to date. Nutrition, exercise and routine health maintenance exams reviewed. Calcium/Vitamin D supplementation information provided. 2) Contraception: IUD. Contraceptive options reviewed and information provided. 3) STD screening: Declined STD check. 4) Follow up one year or sooner as needed ChantalDUONG Landa APRN.CNP 12/11/2017 11:01 AM Signed Addended by: CHANTAL TY on: 12/11/2017 11:01 AM Modules accepted: Orders Referring Provider: SELF [[id number]] Allergies As of Date: 12/11/2017 Noted Allergy Reaction KEFLEX (CEPHALEXIN) 02/26/2005 5 - Intolerance Comments: RAPID PULSE LATEX 02/26/2005 2 - Rash PREDNISONE 02/09/2014 14 - Other: See Comments Comments: Chest tightness- dizzy- [id number]-[id number] SEASONAL ALLERGIES 11/29/2009 10 - Anaphylaxis Date Reviewed: 12/11/2017 Reviewed by: Faby Vickers Ma - Fully Assessed Primary Visit Diagnosis:Encounter for gynecological examination (general) (routine) without abnormal findings [Z01.419] Other Visit Diagnoses:Cyst of right ovary [N83.201] Breast pain [N64.4] Order(s):[facility] [[id number]] Order #: [id number] FUTURE BREAST LTD RT [[id number]] Order #: [id number] FUTURE BREAST LTD LT [[id number]] Order #: [id number] FUTURE FEMALE PELVIS TRANSVAG [[id number]] Order #: [id number] FUTURE Prescriptions as of 12/11/2017 Sig: PROAIR HFA 90 MCG/ACTUATION A* USE 2 INHALATIONS EVERY 4-6 H* LEVONORGESTREL 20 MCG/24 HR (* Inserted in office MULTIVITAMIN ORAL Take by mouth. NAPROXEN 500 MG TABLET Take 1 tablet by mouth twice * LIRAGLUTIDE 0.6 MG/0.1 ML (18* Inject subcutaneously once d* Problem List As Of Date 12/11/2017 Noted Resolved Supervision of other normal [Z34.80] INVALID FOR*02/06/2010 Depressive disorder, not elsewhere classified [* Esophageal reflux [K21.9] More... Migraine NOS/intractable [G43.919] More... Pelvic pain in female [R10.2] INVALID FOR*06/12/2016 Chronic post-traumatic headache [G44.329] INVALID FOR* Paresthesia of skin [R20.2] INVALID FOR* Visit Notes: >> Faby Duenas Dec 11, 2017 9:39 AM Status: Signed Manager Fitness offered: Patient declines. Disposition: Return in 1 year (on 12/11/2018) for Annual Exam. Follow-up and Disposition History Recorded Encounter Status:Closed by KARSONCHANTAL on 12/11/17 CHEST PA AND LATERAL Observed: 11/30/2017 Status: F Source: [place] 10:[address] [facility] REPOSITORY [facility] Imaging Services [address] [place] [address] Chest PA and Lateral MR#: [id number] Acct: [id number] Name: JAROD MONACO Rep #: [id number] : 1980 F 37 From: Marshall Brown DO PCP: Marya Ye DO Status: REG CLI Study: Chest PA and Lateral Date of Exam: 11/30/17 Exam# [id number] Ordering Dr: Clemencia Ramírez STUDY: X-RAY CHEST REASON FOR EXAM: Female, 37 years old. Right lateral rib pain and substernal chest pain. Previous rib injury after coughing. TECHNIQUE: PA and lateral views of the chest. COMPARISON: Right RIBS, July 19, 2015. Chest, July 19, 2015. FINDINGS: The lungs are clear and expanded. There is no demonstrated pleural abnormality. Normal size heart. Normal mediastinum and iliana. Normal visualized pulmonary arteries. Normal visualized aortic arch and descending thoracic aorta. There are minimal degenerative changes of the thoracic spine. Normal visualized ribs, clavicles, and shoulders. There is no demonstrated abnormality of the visualized soft tissue structures of the upper abdomen. RAD/Chest PA and Lateral IMPRESSION: No acute cardiopulmonary disease or interval change. Electronically Signed: Marshall Brown DO at 17:13 EDT Tel [phone], Service support , CC: Clemencia Ramírez SURGERY NURSE; Marya Ye DO Statistical Modeler: Signed URGENT CARE VISIT Observed: 09/26/2017 Status: F Source: [place] REPORT 2:[address] [facility] REPOSITORY [facility] [address] [place], [place] [id number] OFFICE VISIT Date of Service: 09/26/17 MR#: [id number] Acct: [id number] Name: JAROD MONACO Rep #: [id number] : 1980 Provider: JOHNY Becker Age/Sex: 37/F Location[place] [facility] Status: Signed Intake Vital Signs09/26/17 Height 5 ft 7 in Intake Visit Reasons: RT FOOT LACERATION Chief Complaint: my heel got caught on somethng and bled Allergies cephalexin monohydrate [From Keflex] Allergy (Verified 09/26/17 13:47) Unknown latex Allergy (Verified 09/26/17 13:47) Rash Medications naproxen sodium 220 mg tablet 440 mg PO DAILY 09/26/17 [History Confirmed 09/26/17] PFSH Surgical History Hx of oral surgery (Acute) Hx of sinus surgery (Acute) Social History Smoking Status: Never smoker HPI HPI Chief Complaint: my heel got caught on somethng and bled Details: JAROD MONACO, is a 37 F who presents to the office today for right heel laceration. She states they are revovatingg her kitchen and doesnt recall the injury but noted the bleeding and then saw a small flap laceration so came for evaluation. She states she has ictheliosis and her feet stay calloused. They hurt at times when the cracking is bad. ROS Const Constitutional: No body ache, chills, fatigue, fever(s), night sweats, change in appetite, weakness, frequent falls, headache(s) or excessive sweating Eyes Eyes: No visual disturbances, light sensitivity, eye pain or change in vision ENT ENT: No ear pain, ear discharge, hearing loss, dizziness/vertigo, nasal discharge, difficulty swallowing, sore throat, neck pain or headache(s) Resp Respiratory: No cough, chest congestion, hemoptysis, shortness of breath or wheezing Cardio Cardiology: Positive for orthopnea; no shortness of breath, lightheadedness, chest pain at rest, chest pain with exertion, generalized swelling, palpitations, excessive sweating or irregular heart rhythm Gastro GI: No difficulty swallowing, abdominal pain, bloating, change in bowel habits, diarrhea, nausea/dyspepsia or vomiting Genitourinary-Female: No burning urination, urinary frequency or urinary urgency Musc Musculoskeletal: No joint pain, back pain, numbness, tingling or neck pain Skin Skin: Positive for other (small flap laceration R heel. Ictheliosis, dried cracked calloused feet. ); no lesions, itching or rash Breast Breast: Positive for other (small flap laceration R heel. Ictheliosis, dried cracked calloused feet. ) Neuro Neurology: No visual disturbances, numbness, tingling, abnormal speech, confusion, unsteady gait/balance, dizziness, weakness, frequent falls, loss of vision, headache(s) or memory loss Psych Psychiatric: No change in appetite, No confusion, No memory loss, No anxiety, No depression Endo Endocrine: No fatigue, cold intolerance, excessive sweating, flushing, heat intolerance or increased thirst/drinking Aller/Imm Allergy/Immunologic: No wheezing, itchy eyes, food intolerance, seasonal allergy symptoms or hives Petros/Lymp Hematologic/Lymphatic: No easy bruising Exam Const General: cooperative, no acute distress Orientation: alert, oriented x3 HENMT Head: normal to inspection, normocephalic Ears: hearing grossly normal bilaterally, external ears normal Eyes General: appearance normal, both eyes and all related structures Visual Ford: normal visual ford by confrontation Eyelids: eyelids normal Conjunctivae: conjunctivae normal Sclera: sclerae normal EOM: EOM intact bilaterally Neck Neck: normal visual inspection, supple Carotids: no bruits Lymphatic: no lymphadenopathy noted Chest Chest palpation AND inspection: normal inspection of the chest Resp Effort AND Inspection: normal respiratory effort, able to speak in complete sentences, symmetric chest movement, no audible wheezes, no cough, not labored, no respiratory distress Auscultation: Bilateral: Clear to Auscultation Cardio Rate: regular rate Rhythm: regular rhythm Heart Sounds: S1 normal, S2 normal Skin Trauma: laceration (small flap laceration 5 ml triangle well attatched at base calloused skin ) Other: 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 This small flap lac is in line with an already existing crack the extends another centimeter. It has stopped bleeding and is back in good alignment so decision made to apply bacitracin, add adaptic, wrap with coban and have patient do daily dressing changes for 7-10 days till healed. Neuro General: alert, oriented x3, moves all extremities Cognition: normal cognition Speech: speech normal Gait: antalgic (minimally , protecting right heel ) Extrem General: normal to inspection (except for right heel laceration) Psych Appearance: grossly normal, well kempt Mental Status: mental status grossly normal Affect: normal affect Speech and Movement: speech and movement normal Attitude: cooperative Thought Process: normal Thought Content: normal Judgment: judgment good Assessment AND Plan Problems 1. Laceration of right heel without complication, initial encounter S91.311A Plan No sutures applied. Small 5 mm flap in thickened calloused skin right heel (ictheliosis). Last TD was not needed. 2016 Wound cleaned, bacitracin applied and adaptic placed over it. wrapped with coban. Patient advised to change dressing daily the same way. F/u with PCP if becomes erythematous/drainage/or other evidence of infection. Coding Level of Care Code Off vis,new,level 2 Diagnoses Laceration of right heel without complication, initial encounter S91.311A Encounter type: initial encounter 09/26/17 1413 <Electronically signed by Martha MCCLAIN> Date Martha MCCLAIN Cosigner Signature: Date (if applicable) CC: 12 LEAD ELECTROCARDIOGRAM Observed: 09/04/2017 Status: F Source: HAMZAH 10:[address] [facility] REPOSITORY [facility] Cardiovascular [place] [address] 12 Lead EKG 08/28/17 0630 MR#: [id number] Acct: [id number] Name: JAROD MONACO Rep #: [id number] : 1980 37 From: Waldo Gonzáles MD Attending Dr: Zaire Galindo MD Status: DEP [facility] Ordering Dr: Zaire Galindo MD Date: 08/28/17 Location: [facility] Sex: F C Admitted: Test Reason : PRE-OP Blood Pressure : / mmHG Vent. Rate : 062 BPM Atrial Rate : 062 BPM P-R Int : 152 ms QRS Dur : 102 ms QT Int : 422 ms P-R-T Axes : 050 036 044 degrees QTc Int : 428 ms Normal sinus rhythm with sinus arrhythmia Normal ECG Confirmed by WALDO GONZÁLES MD ([id number]), photography editor BHARAT AU ([id number]) on 09/04/2017 10:03:52 AM Referred By: Zaire Galindo Confirmed By:WALDO GONZÁLES MD 09/04/17 1003 Date Waldo Gonzáles MD CC: Zaire Galindo MD; Marya Ye DO Signed DISCHARGE INSTRUCTION Observed: 08/28/2017 Status: F Source: ROS[place]ARON 8:[address] [facility] REPOSITORY [facility] Medical Records Department [address] [place] [address] Instructions for Home/Discharge Instructions 08/28/17 0850 MR#: [id number] Acct: [id number] Name: JAROD MONACO Rep #: [id number] : 1980 37 From: Zaire Galindo MD PCP: Marya Ye DO Status: REG SDC - Discharge Diagnoses Current Active Problems: Current Active and Chronic Problems Chronic frontal sinusitis (Chronic) Chronic maxillary sinusitis (Chronic) You will use the following diet at home:: No restrictions Discharge Activity: Return to Normal Activity, May not drive while taking narcotic pain medications. Call your doctor if your incision/area has: Sudden Increased Bleeding Call your doctor if you observe: Fever of 101 or Higher, Uncontrolled pain Allergies/Adverse Reactions: Allergies cephalexin monohydrate [From Keflex] Allergy (Verified 08/28/17 06:38) Unknown latex Allergy (Verified 08/28/17 06:38) Rash Medications to take at Discharge Naproxen Sodium [Aleve] 440 mg PO DAILY 08/28/17 Primary Care Physician: Marya Ye DO [Primary Care Provider] - Please Follow Up With: Zaire Galindo MD When: 10 days 08/28/17 0851 <Electronically signed by Zaire Galindo MD> Date Zaire Galindo MD CC: Marya Ye DO OPERATIVE REPORT Observed: 08/28/2017 Status: F Source: HAMZAH 8:[address] [facility] REPOSITORY [facility] Medical Records Department [address] [place] [address] Operative Report 08/28/17 0844 MR#: [id number] Acct: [id number] Name: JAROD MONACO Rep #: [id number] : 1980 37 From: Zaire Galindo MD PCP: Marya Ye DO Status: REG [facility] Y Location: [place] [address] Problem List (1) Chronic frontal sinusitis Status: Chronic (2) Chronic maxillary sinusitis Status: Chronic Report of Operation Date of Procedure: 08/28/17 Pre-Operative Diagnosis: Chronic frontal and maxillary sinusitis Post-Operative Diagnosis: same Surgery/Procedure Performed:: Left endoscopic surgery of the frontal sinus, left endoscopic maxillary antrostomy Description of Surgical Findings:: Jarod is a 37-year-old female with history of chronic sinusitis and is previous sinus surgery. She continued to suffer a bandlike headache and left frontal sinus pain and CT scan showed ongoing disease of the left frontal sinus with obstruction of the frontonasal recess by an obstructing sinus cell. Revision surgery was offered in hopes of relief of this complaint and she was eager to proceed. The risks, alternatives, potential benefits, and complications were discussed at length and any questions answered to the patient and/or caregiver's satisfaction. Witnessed informed consent was obtained in the office, and the patient and/or caregiver was agreeable to proceed. Procedure went as follows: The patient was identified in the preoperative holding and brought to the operating room, was placed under general anesthesia and intubated. When appropriate anesthesia was obtained, the navigational head gear was placed and confirmed to be operational in accordance with the supervisor blood's directions. Pledgets soaked in a 50-50 mixture of oxymetazoline and 4% topical lidocaine were placed to decongest the nasal mucosa. These were then removed and beginning on the left side using a 0 endoscope the nasal cavity examined. The insertion of the middle turbinate and uncinate process was then injected with 1% lidocaine with 100,000 epinephrine for a 2 cc total. There is noted to be significant scar banding in obstruction of the frontal nasal recess on the left side. This was additionally injected with 1% lidocaine of 100,000 epinephrine for a total of 1 cc. Using an up-biting forceps the scar band was then removed as well as the bony septum of the anterior ethmoid air cell that was obstructing the frontonasal recess. The frontonasal sinus was then explored and a wide frontal osteotomy created. Significant separative material was aspirated and irrigated clear with saline solution. Additionally there is noted to be significant crusting and retention of debris likely due to her prior sinus stripping procedure with obliteration of the respiratory epithelium and this was suctioned clear bilaterally. There was significant stenosis and scar banding obstructing the left maxillary sinus ostia and this was then revised and widely opened with a front and back biting forceps. Upon completion pledgets soaked in oxymetazoline and 4% topical lidocaine were placed for hemostasis. This completed the procedure. An NG tube was then placed to decompress the stomach and the patient returned to anesthesia, revived and extubated having tolerated the procedure well. Type of Anesthesia:: General Anesthesiologist: Mario Almonte Special Medications: none Specimen's removed: sinus tissue Drains: none Estimated Blood Loss (mL): 50 mL Fluids Replaced: 400 mL Grafts/Implants Used: none - Complications none - Admit VTE Documentation VTE Present on Admission: No VTE Mechan Device Prophylaxis: SCD's VTE Pharm Prophylaxis ordered?: No 08/28/17 0850 <Electronically signed by Zaire Galindo MD> Date Zaire Galindo MD CC: Zaire Galindo MD; Marya Ye DO Signed ETHMOID TISSUE Observed: 08/28/2017 Status: F Source: HAMZAH 7:[address] [facility] REPOSITORY Patient: JAROD MONACO : 1980 (37/F) Acct Num: [id number] Phys: Zaire Galindo MD Unit Num: [id number] Loc: [facility] Specimen: [id number] Received: 08/28/17 - 1113 Spec Type: ETH TISS TISSUES TISSUES: Ethmoid sinus, NOS GROSS DESCRIPTION Received in fixative is one container labeled with the patient's name and designated left sinus contents. The specimen consists of multiple irregular fragments of pink, congested soft tissue that in aggregate measure 5 x 3 x 0.8 cm. The entire specimen is submitted in four cassettes. / SJ:anna 08/28/17 TC: 2 CPT: 02213, 34712 HEADER OPERATION: Functional endoscopic left frontal sinus surgery; left maxillary antrostomy PRE-OP DIAGNOSIS: Chronic frontal sinusitis, chronic maxillary sinusitis TISSUE SUBMITTED: Left sinus contents MICROSCOPIC DESCRIPTION Slides are reviewed. MICROSCOPIC DIAGNOSIS Left sinus contents: Fragments of respiratory mucosa with acute and chronic inflammation and bone. Special stain for fungi is negative for organisms; matched control is appropriate. SJ:anna 08/31/17 Signed Sotero Pulido 08/31/17 <signature on file> Performed By: #### PET #### [facility] [place], [address] CBC-COMPLETE BLOOD CNT Collected: 08/28/2017 Status: F Source: [place] NO DIFF 6:30 [facility] REPOSITORY TYPE CODE TESTS RESULT OUT OF RANGE REFERENCE UNITS LAB L100.1000 4.4-11.0 K/mm3 Normal WBC 6.9 LAB L100.1200 4.2-5.4 M/mm3 Normal RBC 4.26 LAB L100.1300 12.0-15.0 g/dl Normal HGB 12.9 LAB L100.1400 37-47 % Normal HCT 37.7 LAB L100.1500 81-99 fL Normal MCV 88.5 LAB L100.1600 27.0-32.0 pg Normal MCH 30.3 LAB L100.1700 32-36 g/gl Normal MCHC 34.2 LAB L100.1810 11.6-14.6 % Normal RDW CV 12.8 LAB L100.1820 35.1-43.9 fl Normal RDW SD 40.9 LAB L100.1900 150-450 K/mm3 Normal PLT 245 LAB L100.2000 6.2-12.0 fl Normal MPV 9.5 Performed By: #### L100.0500, L500.2500 #### [facility] [address] [place], [place], [id number] BASIC METABOLIC Collected: 08/28/2017 Status: F Source: [place] PROFILE (BMP) 6:[address] [facility] REPOSITORY TYPE CODE TESTS RESULT OUT OF RANGE REFERENCE UNITS LAB L501.0100 74-106 mg/dL Normal GLU 83 Result Comment: Please note revised GLUCOSE reference range effective 2017. LAB L501.1000 7-18 mg/dL Normal BUN 13 LAB L501.1100 0.55-1.02 mg/dL Normal CREAT,SERUM 0.80 Result Comment: The validity of the calculated GFR AND GFRAA in patients over 70 years has not been determined. Clinical correlation is essential. LAB L501.1110 >60 mL/min Normal EST GFR 85 Result Comment: Non- GFR Calc LAB L501.1115 >60 mL/min Normal EST GFR - AA 103 Result Comment: GFR Calc LAB L501.1255 ml/min Normal Estimated CRCL 69.16 LAB L501.1300 10-20 RATIO Normal BUN/CRE 16.2 LAB L501.2200 8.5-10 mg/dL Normal .1 CA 8.5 LAB L501.5300 136-14 mmol/L Normal 5 NA 141 LAB L501.5600 3.5-5. mmol/L Normal 1 K 3.7 LAB L501.5900 98-107 mmol/L High CL 108 LAB L501.6100 21.0-3 mmol/L Normal 2.0 CO2 27.0 LAB L501.6200 5-15 Normal GAP 6 Performed By: #### L100.0500, L500.2500 #### [facility] [address] [place], [place], [id number] ,URINE Collected: 08/28/2017 Status: F Source: ROS[place] 6:[address] [facility] REPOSITORY TYPE CODE TESTS RESULT OUT OF REFERENCE UNITS RANGE LAB L400.8000 Negative Normal HCGUQUAL Negative Result Comment: Very dilute urine specimens, as indicated by a low specific gravity, may not contain senior account representative levels of hCG. If is still suspected, a first morning urine specimen should be collected 48 hours later and tested. Performed By: #### L400.7600 #### [facility] [address] [place], [address] SINUS/FACIAL BONE Observed: 08/08/2017 Status: F Source: [place] 6:[address] [facility] REPOSITORY [facility] Imaging Services [address] [place] [address] Sinus/Facial Bone MR#: [id number] Acct: [id number] Name: JAROD MONACO Rep #: [id number] : 1980 F 37 From: Reinaldo Sparrow MD PCP: Marya Ye DO Status: REG CLI Study: Sinus/Facial Bone Date of Exam: 08/08/17 Exam# [id number] Ordering Dr: Zaire Galindo MD STUDY: CT MAXILLOFACIAL SINUSES REASON FOR EXAM: Female, 37 years old. Sinusitis RADIATION DOSAGE (If Supplied By Facility): CTDIvol = ( 33.06 ) mGy, DLP = ( 730.55 ) mGycm TECHNIQUE: The patient was scanned in a multi detector CT scanner. High resolution axial imaging was performed without the administration of intravenous contrast material. Sagittal and coronal images were reconstructed. Individualized dose optimization techniques were used for this CT. COMPARISON: None. FINDINGS: FRONTAL SINUSES: Weeks retention cyst overlying the ostium of the left frontal sinus. Mild mucoperiosteal thickening within the left frontal sinus otherwise. Right frontal sinus clear. ETHMOIDAL SINUSES: B comparison thickening within the left anterior ethmoids abutting the left frontal sinus ostium. Resection of the majority of the right ethmoid sinuses up to the opening of the right frontal sinus ostium. MAXILLARY SINUSES: Circumferential mucoperiosteal thickening of the maxillary sinuses, prior antrectomy. SPHENOIDAL SINUSES: Normal aeration, without mucosal inflammatory disease. The mastoid air cells and middle ear cavities are clear. Symmetric and grossly normal features of the vestibular and acoustic apparatus of the temporal bones. Craniofacial osseous structures acutely intact. Orbital contents normal. Superficial and deep facial soft tissues normal. CT/Sinus/Facial Bone IMPRESSION: Chronic sinus disease and postsurgical changes of the sinuses as described above. Electronically Signed: Reinaldo Sparrow, at 0:02 EDT Tel , Service support , CC: Zaire Galindo MD; Marya Ye DO Statistical Modeler: Signed LIPID PROFILE Collected: 05/26/2017 Status: F Source: [place] 10:[address] [facility] REPOSITORY TYPE CODE TESTS RESULT OUT OF RANGE REFERENCE UNITS LAB L501.4900 200 mg/dL Normal CHOL 199 Result Comment: <200 mg/dL Desirable 200-240 mg/dL Borderline >240 mg/dL High Risk LAB L501.5000 mg/dL Normal TRIG 148 Result Comment: The drugs N-Acetylcysteine and Metamizole may falsely depress this assay. Serum Triglycerides Reference Interval Normal <150 mg/dL Borderline high 150 - 199 mg/dL High 200 - 499 mg/dL Very High > or = 500 mg/dL LAB L501.6400 mg/dL Normal HDL 43 Result Comment: The drugs N-Acetylcysteine and Metamizole may falsely depress this assay. Reference Range HDL <40 mg/dL Low HDL Cholesterol HDL >or= 60 mg/dL High HDL Cholesterol LAB L501.6500 0-130 mg/dL Normal LDL 126 LAB L501.6600 5-40 mg/dL Normal VLDL 30 Performed By: #### L500.4100, L501.0100 #### [facility] [address] [place], [address] GLUCOSE Collected: 05/26/2017 Status: F Source: [place] 10:[address] [facility] REPOSITORY TYPE CODE TESTS RESULT OUT OF RANGE REFERENCE UNITS LAB L501.0100 74-106 mg/dL Normal GLU 90 Result Comment: Please note revised GLUCOSE reference range effective 2017. Performed By: #### L500.4100, L501.0100 #### [facility] [address] [place], [address] ALLERGIES ALLERGIES DATE TYPE / CODE NAME / CODE REACTION SEVERITY SOURCE 09/26/2017 Drug cephalexin Unknown Unknown [facility] Allergy/416 monohydrate/F000 [facility]ly [facility] [id number]([facility] 888352([facility] ED CT) Repository 09/26/2017 Drug latex/[id number] Rash Unknown [place] Allergy/416 (RXNORM) Formerly [facility] 625548([facility] ED CT) Repository 02/09/2014 DRUG PREDNISONE OTHER: SEE C [address] [address]417(SN Repository ED CT) 11/29/2009 Environ/420 SEASONAL ANAPHYLAXIS [facility] 007295([facility] ALLERGIES Main [place] ED CT) Repository 02/26/2005 DRUG CEPHALEXIN INTOLERANCE [address] 592884(SNOM Repository ED CT) 02/26/2005 Environ/420 LATEX RASH [facility] 713603([facility] ED CT) Repository ENCOUNTERS ENCOUNTERS ADMIT/DISCHARGE ACCOUNT NUMBER ADMITTING ENCOUNTER LOCATION SOURCE CLASS 02/16/[id number] [facility] ding:NS Repository 02/15/2018 [id number] Ambulatory BBuilding:[facility] Repository 02/02/2018/02/06/20 [id number] Ambulatory [address] ding:NS Repository 02/02/2018/02/05/20 [id number] Ambulatory [address] Repository 12/22/2017/12/23/19 [id number] Ambulatory [address] Repository 12/22/2017/12/23/19 [id number] Ambulatory [address] Repository 12/22/2017/12/23/19 [id number] Ambulatory [address] Repository 12/21/[id number] [facility] ding:CT Repository 12/11/2017/12/15/19 [id number] Ambulatory [address] Main [place] Repository 11/30/[id number] [facility] ding:HPRAD Repository 09/26/2017/09/27/19 [id number] Ambulatory BMSBuilding: [place] [facility] Repository 08/28/2017/08/29/19 [id number] Ambulatory [place] [address] ding:SDCRoom Repository : AC01 08/08/[id number] [facility] ding:CT Repository 05/26/[id number] [facility] ding:OLS.WCE Repository H PAYERS PAYERS ENCOUNTER GUARANTOR PAYER SUBSCRIBER SOURCE 02/16/2018 JAROD You [id number] [place] [facility] NETTLEDOB: [place], [place] Number: [id number] [facility] [address]Upu: (641) [id number] Repository [phone] () Date:[id number] [address] [address]UK: 02/16/2018 [facility]:SELF PAY [facility] Number: Effective Repository Date:2018-02-06 02/15/2018 JAROD R Primary JAROD [facility] NETTLEDOB: Insurance:ANTHEM BLUE NETTLEDOB: Foundation CROSS INSCOPolicy [id number] Repository [facility], Number: 4 [facility] [id number] [address]~MIKEANDCAR Date:2018-02-15 60634Zjc: (478) [id number] [id number] [phone] COMTel: ([phone]) Name:[facility] BOX (HP) [address], [place] [phone] (WP) (HP)Tel: [phone]: ([phone]) [phone] 02/02/2018 JAROD R Primary JAROD R [place] [id number] [place] Insurance:AETNAPolicy NETTLEDOB: [place], [place] Number: [id number] [facility] 58280Zdh: (330) [id number] Repository [phone] (HP) Date:[id number] [address] [address]IX: 02/02/2018 Secondary NOT GIVENUNK [place] Insurance:SELF PAY [facility] Number: Effective Repository Date:2018-02-01 12/21/2017 JAROD R Primary JAROD R [place] [id number] [place] Insurance:AETNAPolicy NETTLEDOB: [place] Number: [id number] Hospital 268[address]Oyw: (330) [id number] Repository [phone] (HP) Date:5732-15-26PK [address] [address]NW: 12/21/2017 Secondary NOT GIVENUNK [place] Insurance:SELF PAY [facility] Number: Effective Repository Date:2017-12-14 11/30/2017 JAROD R Primary JAROD R [place] [id number] [place] Insurance:AETNAPolicy NETTLEDOB: [place] Number: [id number] Hospital 12952Pbq: (330) [id number] Repository [phone] (HP) Date:0838-58-39VL [address], [place] [address]JQ: 11/30/2017 Secondary NOT GIVENUNK [place] Insurance:SELF PAY [facility] Number: Effective Repository Date:2017-11-30 09/26/2017 JAROD R Primary JAROD R [place] [id number] [place] Insurance:AETNAPolicy NETTLEDOB: [place], [place] Number: [id number] Hospital 362[address]Mcg: (330) [id number] Repository [phone] (HP) Date:3817-16-37MH [address], [place] [address]KO: 09/26/2017 Secondary NOT GIVENUNK [place] Insurance:SELF PAY [facility] Number: Effective Repository Date:2017-09-26 08/28/2017 JAROD R Primary JAROD R Hamzah [id number] [place] Insurance:AETNAPolicy NETTLEDOB: [place], [place] Number: [id number] 295[address]Sds: (330 [id number] Repository [phone] (HP) Date:[id number] [address]VY: 08/28/2017 Secondary NOT GIVENUNK [place] Insurance:SELF PAY [facility] Number: Effective Repository Date:2017-08-13 08/08/2017 JAROD R Primary JAROD R Hamzah [id number] [place] Insurance:AETNAPolicy NETTLEDOB: [place], [place] Number: [id number] [id number]: (330) [id number] Repository [phone] () Date:[id number] [address] [address]RB: 08/08/2017 Secondary NOT GIVENUNK [place] Insurance:SELF PAY [facility] Number: Effective Repository Date:2017-07-31 05/26/2017 Lyndon Primary NOT GIVENUNK [place] [id number] [place] Insurance:SELF PAY [facility] [id number]: (330) Number: Effective Repository [phone] () Date:2017-05-26
== END 2018-02-05 23:59 ==
LOC: NS 10:45
PROVIDERS: Family Provider Internal Medicine; PCP Internal Medicine; Visit Provider Nurse Practitioner
DX: E66.9 Obesity, unspecified (principal); Z68.42 Body mass index [BMI] 45.0-49.9, adult; Z71.3 Dietary counseling and surveillance
CPT/HCPCS: 97802

== ENCOUNTER 2018-03-04 08:00 | Outpatient (RCR) | payer OTHER, SELFPAY ==
[2017-09-26 13:46] VITALS: BMI 43.7
== END 2018-03-08 23:59 ==
LOC: NS 08:00
PROVIDERS: Family Provider Internal Medicine; PCP Internal Medicine; Visit Provider Nurse Practitioner
DX: E66.9 Obesity, unspecified (principal); Z68.42 Body mass index [BMI] 45.0-49.9, adult; Z71.3 Dietary counseling and surveillance
CPT/HCPCS: 97803

== ENCOUNTER 2018-03-16 11:26 | Outpatient (RCR) | payer OTHER, SELFPAY | END 2018-03-16 23:59 | LOC: NS 11:26 | PROVIDERS: Family Provider Internal Medicine; PCP Internal Medicine; Visit Provider Nurse Practitioner | DX: E66.9 Obesity, unspecified (principal); Z68.42 Body mass index [BMI] 45.0-49.9, adult; Z71.3 Dietary counseling and surveillance | CPT/HCPCS: 97803 ==

== ENCOUNTER → 2020-04-12 07:45 | Outpatient (CLI) | payer OTHER, SELFPAY ==
--- NOTE | 2020-04-12 07:52 | CT_ITS ---
STUDY: CT MAXILLOFACIAL SINUSES REASON FOR EXAM: Female, 40 years old. CHRONIC FRONTAL/MAXILLARY SINUSITIS,, SINUS PRESSURE, ZHAO, HAD COVID IN JANUARY, SINUS SURG X 3 RADIATION DOSAGE (If Supplied By Facility): CTDIvol = ( 33.06 ) mGy, DLP = ( 672.7 ) mGycm TECHNIQUE: The patient was scanned in a multi detector CT scanner. High resolution axial imaging was performed without the administration of intravenous contrast material. Sagittal and coronal images were reconstructed. Individualized dose optimization techniques were used for this CT. COMPARISON: Comparison is made with prior study dated 08/08/2017. FINDINGS: FRONTAL SINUSES: Mild degree of residual mucosal thickening along the posterior aspect of the left frontal sinus. ETHMOIDAL SINUSES: Normal aeration, without mucosal inflammatory disease. MAXILLARY SINUSES: There is been resection of the medial huynh of both right and left maxillary sinuses. Partial opacification of the maxillary sinuses more prominent on the left side. There has been almost complete resection of the ethmoid sinuses bilaterally. SPHENOIDAL SINUSES: Normal aeration, without mucosal inflammatory disease. There is patency of the bilateral maxillary infundibuli with normal uncinate processes, ethmoid bullae, and hiatus semilunaris. There has been partial resection of the middle turbinates bilaterally. There is hypertrophy of the right inferior nasal turbinate. Normal midline nasal septum. There is patency of the bilateral nasal airways. The visualized osseous structures are normal. The visualized bilateral orbital contents are normal. CT/Sinus/Facial Bone IMPRESSION: Status post resection of the medial huynh of both maxillary sinuses with partial opacification of the maxillary sinuses more prominent on the left side. Electronically Signed: Malik Marques MD at 8:40 EST , Service support ,
== END ==
PROVIDERS: PCP Internal Medicine; Referring Provider Otolaryngology; Visit Provider Otolaryngology
DX: J32.1 Chronic frontal sinusitis (principal)
CPT/HCPCS: 70486

== ENCOUNTER → 2021-01-15 10:02 | Outpatient (CLI) | payer OTHER, SELFPAY ==
--- NOTE | 2021-01-15 10:06 | RAD_ITS ---
STUDY: X-RAY - PELVIS REASON FOR EXAM: Female, 40 years old. PAIN TECHNIQUE: One view of the pelvis was obtained. COMPARISON: None. FINDINGS: There is a non-specific bowel gas pattern. IUD is seen within the pelvis. Partial fusion of the sacroiliac joints bilaterally worse on the right side. Normal visualized bilateral superior and inferior pubic rami. There are degenerative changes of the pubic symphysis with articular narrowing and sclerosis. Normal ischial tuberosities. Normal visualized right femoral head. Normal right acetabulum. Normal right hip joint. Normal visualized left femoral head. Normal left acetabulum. Normal left hip joint. RAD/Pelvis 1 or 2 Views IMPRESSION: Partial fusion of the sacroiliac joints bilaterally worse on the right side. Electronically Signed: Malik Marques MD at 13:46 EST , Service support ,
[2021-01-15 12:45] LABS: Erythrocyte Sedimentation Rate 5 mm/hr (0-30)
[2021-01-15 12:47] LABS: Absolute Lymphocyte Count 2.03 X10^3/uL (0.83-4.51); Absolute Neutrophil Count 3.8 X10^3/uL (2.0-7.7); Basophil# 0.04 X10^3/uL; Basophil% 0.6 % (0-1); Eosinophil# 0.27 X10^3/uL; Eosinophils% 4.1 % (0-5); Hematocrit 40.4 % (37-47); Hemoglobin 13.7 g/dL (12.0-15.0); Lymphocyte # 2.03 X10^3/ul (0.83-4.51); Lymphocyte % 30.6 % (19-41); Mean Corp Hgb Conc 33.9 g/dL (32-36); Mean Corpuscular Hgb 29.8 pg (27.0-32.0); Mean Corpuscular Volume 87.8 fL (81-99); Mean Platelet Vol. 10.2 fl (6.2-12.0); Monocyte# 0.47 X10^3/uL; Monocyte% 7.1 % (0-10); NRBC Flagged by Analyzer 0 % (0-5); Neutrophil # 3.81 X10^3/uL (2.7-7.7); Neutrophil % 57.3 % (47-70); Platelet Count 305 K/mm3 (150-450); RBC Distribution Width CV 12.2 % (11.6-14.6); RBC Distribution Width SD 39.4 fl (35.1-43.9); White Blood Count 6.6 K/mm3 (4.4-11.0)
[2021-01-15 12:55] LABS: ALB/GLOB Ratio 1.1 RATIO (0.9-2.4); AST(SGOT) 23 U/L (15-37); Alanine Aminotransfer ALT/SGPT 34 U/L (13-56); Albumin, Serum 3.5 g/dL (3.2-5.0); Alkaline Phosphatase 85 U/L (45-117); Anion Gap 3 (5-15); BUN 21 mg/dL (7-18); BUN/Creat Ratio 24.4 RATIO (10-20); CRP 5.54 mg/L (0.0-3.0); Calcium,Total 9.3 mg/dL (8.5-10.1); Chloride 109 mmol/L (98-107); Creatinine, Serum 0.86 mg/dL (0.55-1.02); EST Glomerular Filtration Rate 77 mL/min (>60); Est Glom Filt Rate - Afr Amer 94 mL/min (>60); Globulin 3.3 g/dL (2.2-4.2); Glucose 111 mg/dL (74-106); Potassium 3.7 mmol/L (3.5-5.1); Protein, Total 6.8 g/dL (6.4-8.2); Rheumatoid Factor < 10.0 IU/mL (<15); Sodium Level 140 mmol/L (136-145)
[2021-01-15 13:25] LABS: Hepatitis B Surface Antibody Non-Reactive; Hepatitis B Surface Antigen Non-Reactive (Nonreactive); Hepatitis C Antibody Non-Reactive (Nonreactive)
[2021-01-16 13:49] LABS: ANTINUCLEAR ANTIBODIES DIRECT Negative (Negative)
[2021-01-17 17:05] LABS: CCP IgG Antibodies 4 units (0-19)
== END ==
PROVIDERS: PCP Physician Assistant; Referring Provider Internal Medicine Rheumatology; Visit Provider Internal Medicine Rheumatology
DX: L40.59 Other psoriatic arthropathy (principal); L40.8 Other psoriasis; M47.897 Other spondylosis, lumbosacral region; M47.892 Other spondylosis, cervical region; Q66.70 Congenital pes cavus, unspecified foot; K21.9 Gastro-esophageal reflux disease without esophagitis; F32.A Depression, unspecified; G43.909 Migraine, unspecified, not intractable, without status migrainosus
CPT/HCPCS: 36415; 72170; 80053; 85025; 85652; 86038; 86140; 86200; 86431; 86706; 86803; 87340

== ENCOUNTER → 2022-05-19 | Outpatient (CLI) | payer OTHER, SELFPAY ==
--- NOTE | 2022-05-19 08:08 | US_ITS ---
STUDY: ABDOMINAL ULTRASOUND - ELASTOGRAPHY REASON FOR VISIT: Female, 42 years old. Fatty infiltration of the liver. TECHNIQUE: Liver stiffness measurements were obtained on a [employer] RS 85 ultrasound machine using a CA 1-7 probe following the SRU guidelines. 3 measurements were obtained using a 2-D-SWE method. TheIQR/M was 24% suggesting a quality data set. TECHNICAL QUALITY: Adequate. COMPARISON: Comparison is made with prior study done earlier today. FINDINGS: Liver: Fatty infiltration of the liver. Median liver stiffness measured 8 kPa. US/Elastography Parenchyma/Organ IMPRESSION: Liver stiffness measures 8 kPa compatible with F2-F3 (Mild to moderate liver fibrosis) Metavir score. Electronically Signed: Malik Marques MD at 9:42 EDT ,
--- NOTE | 2022-05-19 08:09 | US_ITS ---
STUDY: ABDOMINAL ULTRASOUND - RIGHT UPPER QUADRANT REASON FOR VISIT: Female, 42 years old FATTY LIVER TECHNIQUE: Ultrasound evaluation of the right upper quadrant was performed with real-time and static cardoza-scale imaging. TECHNICAL QUALITY: Adequate. COMPARISON: Comparison is made with prior study dated July 06, 2013. FINDINGS: Liver: The liver measures 16 cm. There is increased echogenicity consistent with fatty infiltration. The bile ducts are within normal limits. There is hepatic color flow. The direction of portal flow is hepatopetal. There is no demonstrated mass lesion. Gallbladder: Normal distended gallbladder. The gallbladder wall measures 2.4 mm. There is a negative sonographic Guzman''s sign. There is no pericholecystic fluid. There is a solitary echogenic gallstone within the gallbladder. This measures 1.8 cm. Common Bile Duct (C.B.D.): The common bile duct measures 3.7 mm. Pancreas: Normal size of the head, body and tail of the pancreas. There is increased echogenicity of the pancreas. There is no demonstrated pancreatic mass or cyst. Right Kidney: Normal size of the right kidney. The right kidney measures 11.7 cm x 4.5 cm x 5 cm. Normal renal cortex. The right cortex measures 1.9 cm. There is no demonstrated renal mass or cyst. There is no right hydronephrosis. US/Abdomen Limited IMPRESSION: Fatty infiltration of the liver. Solitary gallstone measuring 1.8 cm. Electronically Signed: Malik Marques MD at 9:41 EDT ,
== END | disposition home or self-care (01) ==
LOC: US 08:06
PROVIDERS: PCP Internal Medicine; Visit Provider Internal Medicine
DX: K76.0 Fatty (change of) liver, not elsewhere classified (principal)
CPT/HCPCS: 76705; 76981

== ENCOUNTER → 2022-12-24 | Outpatient (CLI) | payer OTHER, SELFPAY ==
[2022-12-24 12:51] LABS: Erythrocyte Sedimentation Rate < 1 mm/hr (0-30)
[2022-12-24 12:53] LABS: Lactic Acid 0.8 mmol/L (0.4-1.9)
[2022-12-24 12:57] LABS: Absolute Lymphocyte Count 1.88 X10^3/uL (0.83-4.51); Absolute Neutrophil Count 2.7 X10^3/uL (2.0-7.7); Basophil# 0.01 X10^3/uL; Basophil% 0.2 % (0-1); Eosinophil# 0.19 X10^3/uL; Eosinophils% 3.7 % (0-5); Hemoglobin 13.3 g/dL (12.0-15.0); Lymphocyte # 1.88 X10^3/ul (0.83-4.51); Lymphocyte % 36.5 % (19-41); Mean Corp Hgb Conc 33.3 g/dL (32-36); Mean Corpuscular Hgb 31.1 pg (27.0-32.0); Mean Corpuscular Volume 93.5 fL (81-99); Mean Platelet Vol. 10.6 fl (6.2-12.0); Monocyte# 0.34 X10^3/uL; Monocyte% 6.6 % (0-10); NRBC Flagged by Analyzer 0 % (0-5); Neutrophil # 2.72 X10^3/uL (2.7-7.7); Neutrophil % 52.8 % (47-70); Platelet Count 248 K/mm3 (150-450); RBC Distribution Width CV 12.3 % (11.6-14.6); RBC Distribution Width SD 42.2 fl (35.1-43.9); Red Blood Count 4.28 M/mm3 (4.2-5.4); White Blood Count 5.2 K/mm3 (4.4-11.0)
[2022-12-24 13:32] LABS: ALB/GLOB Ratio 1.1 RATIO (0.9-2.4); AST(SGOT) 19 U/L (15-37); Alanine Aminotransfer ALT/SGPT 26 U/L (13-56); Albumin, Serum 3.6 g/dL (3.2-5.0); Alkaline Phosphatase 69 U/L (45-117); Anion Gap 4 (5-15); BUN 16 mg/dL (7-18); BUN/Creat Ratio 17.5 RATIO (10-20); CRP < 2.90 mg/L (0.0-3.0); Chloride 110 mmol/L (98-107); Creatinine, Serum 0.91 mg/dL (0.55-1.02); EST Glomerular Filtration Rate 72 mL/min (>60); Est Glom Filt Rate - Afr Amer 87 mL/min (>60); Globulin 3.2 g/dL (2.2-4.2); Glucose 86 mg/dL (74-106); Protein, Total 6.8 g/dL (6.4-8.2); Sodium Level 142 mmol/L (136-145)
== END | disposition home or self-care (01) ==
PROVIDERS: PCP Internal Medicine; Referring Provider Nurse Practitioner Family; Visit Provider Nurse Practitioner Family
DX: L24.A9 Irritant contact dermatitis due friction or contact with other specified body fluids (principal)
CPT/HCPCS: 36415; 80053; 83605; 85025; 85652; 86140

== ENCOUNTER → 2023-07-21 | Outpatient (CLI) | payer OTHER, SELFPAY ==
--- NOTE | 2023-07-21 15:45 | MRI_ITS ---
STUDY: MRI BRAIN WITH AND WITHOUT CONTRAST REASON FOR EXAM: Female, 43 years old patient with paresthesia and left-sided weakness. Prior brain MRI TECHNIQUE: Standardized multiplanar fat and water weighted pulse sequences were obtained. IV 18 ml of IV Clariscan was administered for the contrast portion of the examination. COMPARISON: MRI of the brain dated February 01, 2014. FINDINGS: Normal size of the ventricles and extra-axial spaces for the patient''s age. Normal white matter tracts of the supratentorial brain. There is no evidence for recent intracranial ischemia or other cause of cytotoxic edema on diffusion weighted imaging (DWI). Normal T2* images of the brain without demonstrated susceptibility artifact. There is no demonstrated hemosiderin stain. Normal bilateral basal ganglia. Normal thalami. There is no extra-axial fluid accumulation. Normal flow voids within the major intracranial circulation suggesting patency by spin echo criteria. Normal venous enhancement. There is no enhancing intra-axial or extra-axial abnormality. Normal sella turcica, pituitary gland, infundibular stalk, optic chiasm and hypothalamus. Normal tectal plate and pineal gland. Normal midbrain, samina and medulla. Normal cerebellum. Normal basal cisterns. Normal bilateral temporal bones. Normal bilateral internal auditory canals. No demonstrated orbital abnormality, within the constraints of a routine brain study. There appears to be mucosal thickening in left maxillary sinus. Normal calvarium and skull base. Normal visualized soft tissue structures. Normal visualized upper cervical spine. MRI/Brain W/WO Contrast IMPRESSION: No MR evidence for mass or acute infarct. Electronically Signed: Shirley Vaughn MD at 7:45 EDT ,
== END | disposition home or self-care (01) ==
LOC: MRI 15:27
PROVIDERS: PCP Internal Medicine; Referring Provider Internal Medicine; Visit Provider Internal Medicine
DX: R20.2 Paresthesia of skin (principal); R27.8 Other lack of coordination; R29.898 Other symptoms and signs involving the musculoskeletal system
CPT/HCPCS: 70553; A9575

== ENCOUNTER → 2024-04-12 | Outpatient (CLI) | payer OTHER, SELFPAY ==
[2024-04-12 12:29] LABS: Absolute Lymphocyte Count 1.86 X10^3/uL (0.83-4.51); Absolute Neutrophil Count 2.7 X10^3/uL (2.0-7.7); Basophil# 0.03 X10^3/uL; Basophil% 0.6 % (0-1); Eosinophil# 0.31 X10^3/uL; Eosinophils% 5.9 % (0-5); Hematocrit 41.2 % (37-47); Hemoglobin 13.6 g/dL (12.0-15.0); Lymphocyte # 1.86 X10^3/ul (0.83-4.51); Lymphocyte % 35.4 % (19-41); Mean Corpuscular Hgb 31.3 pg (27.0-32.0); Mean Corpuscular Volume 94.9 fL (81-99); Mean Platelet Vol. 10.1 fl (6.2-12.0); Monocyte# 0.34 X10^3/uL; Monocyte% 6.5 % (0-10); NRBC Flagged by Analyzer 0 % (0-5); Neutrophil % 51.4 % (47-70); Platelet Count 272 K/mm3 (150-450); RBC Distribution Width CV 12.5 % (11.6-14.6); RBC Distribution Width SD 43.8 fl (35.1-43.9); Red Blood Count 4.34 M/mm3 (4.2-5.4); White Blood Count 5.3 K/mm3 (4.4-11.0)
[2024-04-12 12:46] LABS: ALB/GLOB Ratio 1.2 RATIO (0.9-2.4); AST(SGOT) 23 U/L (15-37); Alanine Aminotransfer ALT/SGPT 48 U/L (13-56); Albumin, Serum 3.7 g/dL (3.2-5.0); Alkaline Phosphatase 75 U/L (45-117); Amylase 64 U/L (25-115); Anion Gap 6 (5-15); BUN 19 mg/dL (7-18); BUN/Creat Ratio 24.8 RATIO (10-20); Calcium,Total 8.9 mg/dL (8.5-10.1); Chloride 106 mmol/L (98-107); Creatinine, Serum 0.77 mg/dL (0.55-1.02); EST Glomerular Filtration Rate 87 mL/min (>60); Est Glom Filt Rate - Afr Amer 105 mL/min (>60); Globulin 3.1 g/dL (2.2-4.2); Glucose 79 mg/dL (74-106); Lipase 51 U/L (13-75); Potassium 3.8 mmol/L (3.5-5.1); Protein, Total 6.8 g/dL (6.4-8.2); Sodium Level 142 mmol/L (136-145)
[2024-04-13 10:10] LABS: Erythrocyte Sedimentation Rate < 1 mm/hr (0-30)
== END | disposition home or self-care (01) ==
LOC: LAB 11:58 → LABSPEC 12:09
PROVIDERS: PCP Internal Medicine; Referring Provider Internal Medicine; Visit Provider Internal Medicine
DX: R10.13 Epigastric pain (principal)
CPT/HCPCS: 80053; 82150; 83690; 85025; 85652

== ENCOUNTER 2024-05-07 23:06 | Observation (INO) | payer OTHER, SELFPAY ==
[2024-05-07 21:45] VITALS: BMI 30.6
[2024-05-07 21:47] VITALS: BP 130/72; PULSE 84; RESP 16; TEMP 36.7; O2SAT 98
--- NOTE | 2024-05-07 22:54 | HP.PCM.HOS_ITS ---
[facility] - General General Date of Admission: 05/07/24 Date of Service: 05/07/24 Chief Complaint: Acting Odd with Intermittent Unresponsiveness. [facility] Narrative JAROD HERRERA, is a 44 F with a past medical history of obesity; with a BMI of 30.6 this admission; on semaglutide~ 2 years with a subsequent ~100 pound weight loss with recent restarting of this agent on Thursday, May 04, 2024, ADD; on dexmethylphenidate twice daily, neuropathy; on gabapentin, depression; on duloxetine, history of migraine headaches; on ubrogepant BID and galcanezumab monthly, history of autoimmune arthritis; on ixekizumab plus history of chronic maxillary and frontal sinusitis; s/p sinus surgery who was transferred from [facility] ER to [facility] with complaints of acting odd with intermittent unresponsiveness. Mrs. Herrera reports her symptoms began on April at approximately 2 PM while she was at the counter at [email or web address] when she suddenly became very weak and tired and had to hold onto the counter to keep from falling. She then went out to her car to try to recompose herself in spite of profound fatigue and excessive sleepiness and apparently fell asleep for a brief period of time in her car. Later that day she took her children to the dentist and after she got them into their appointment she went out to her car and abruptly fell asleep with no warning before symptoms seem to spontaneously i mproved. Then on Monday, May 06, 2024 at approximately 2 PM she had another episode of profound fatigue and the abrupt onset of excessive sleepiness while she was being in the car by her with patient just going home to lay down and falling asleep on the couch. Then on Tuesday, May 07, 2024 at approximately 2 PM she was attempting to eat a meal from [employer] when she experienced severe fatigue and sleepiness lasting for approximately 1 minute and this time had an associated Right temporal headache for which she took Ubrelvy tablet with resolution of the headache within ~30 minutes. Her reported to her she was acting like she was stoned though the patient denies any drug use, alcohol use, any other illicit drug use or similar previous episodes. She also denies related fever, chills, nausea, vomiting, diarrhea, constipation, chest pain or shortness of breath. She does admit to feeling a similar but less severe feeling when she takes her dexmethylphenidate in the afternoon - but this was much more severe. She then contacted her PCP who recommended that she go to the ER for further evaluation and treatment at [facility]. There she underwent CT scan of the head which was unremarkable as well as her laboratory test and vital signs with no definite etiology for symptoms identified but with a high-index of clinical suspicion for Adverse Drug Reaction to recently restarted semaglutide with additional residual concern for possible TIA/CVA, absence seizures, narcolepsy and less likely conversion disorder. She was then admitted to the PCU under observation status for a stay that is expected to be less than 2 midnights. [facility] Medical History (Updated 05/07/24 @ 23:[address] Negrito Fuentes, DO) ADD (attention deficit disorder) Migraine Home Medications ?Medication ?Instructions ?Recorded ?Last Taken ?Type cholecalciferol (vitamin D3) 25 25 mcg PO DAILY supple ment 05/07/24 05/07/24 History mcg (1,000 unit) capsule (Vitamin D3) dexmethylphenidate 10 mg 10 mg PO BID add 05/07/24 History capsule,extended release [id number] duloxetine 60 mg capsule,delayed 60 mg PO DAILY mood 0 05/07/24 05/07/24 History release gabapentin 300 mg capsule 300 mg PO DAILY nerve 05/07/24 History galcanezumab-gnlm 120 mg/mL 120 mg subcut QMONTH migra ine 05/07/24 04/24/24 History subcutaneous pen injector (Emgality Pen) ixekizumab 80 mg/mL subcutaneous 80 mg subcut QMONTH a rthritis 05/07/24 04/09/24 History auto-injector (Taltz Autoinjector) semaglutide 0.25 mg or 0.5 mg (2 0.25 mg subcut QWEEK weight loss 05/07/24 05/04/24 History mg/3 mL) subcutaneous pen injector (Ozempic) ubrogepant 100 mg tablet (Ubrelvy) 100 mg PO BID PRN m igrane 05/07/24 05/07/24 History Allergy/AdvReac Type Severity Reaction Status Date / Time cephalexin monohydrate (From Allergy Unknown Verified 09/26/17 13:47 Keflex) latex Allergy Rash Verified 09/26/17 13:47 Surgical History Hx of sinus surgery Hx of oral surgery Social History Smoking Status: Never smoker ROS ROS Narrative Review of Systems: Constitutional: Patient admits to intermittent severe fatigue with weakness and excessive sleepiness but denies fever or chills. Eyes: Patient denies changes in vision or discharge from eyes. ENT: Patient denies runny nose, sore throat or ear pain. Resp: Patient denies shortness of breath or cough. CV: Patient denies chest pain, palpitations, heart racing or lower extremity edema. GI: Patient denies abdominal pain, nausea, vomiting, diarrhea or constipation. : Patient denies dysuria or hematuria. MSK: Patient admits to severe fatigue and generalized weakness during her spells. Skin: Patient denies rash, abscess, wounds or jaundice. Psych: Patient denies symptoms of uncontrolled depression or anxiety. Neuro: Patient admits to headache that was focused in the Right temporal region with her latest episode of weakness and excessive sleepiness. She denies paresthesias. Allergy: Patient denies lip swelling, tongue swelling or urticaria. Hematology: Patient denies easy bleeding or easy bruisability. Endocrinology: Patient denies polyuria, polydipsia or polyphagia 14 point ROS otherwise negative except for positives noted above in HPI. Vital Signs Vital Signs Vital Signs: 05/07/24 21:47 05/07/24 22:00 Temperature 98.1 F Temperature Source Temporal Pulse Rate 84 Respiratory Rate 16 Blood Pressure 130/72 H Blood Pressure Mean 91 Blood Pressure Source Monitor Blood Pressure Position Semi-Fowlers Blood Pressure Location Left Arm Pulse Ox 98 Oxygen Delivery Method Room Air Room Air Weight Weight: 183 lb 13.848 oz Body Mass Index (BMI) 30.6 Physical Exam Const alert, oriented x3 and no apparent distress Constitutional Narrative: Obese. General Appearance: cooperative HEENT normocephalic, head/scalp atraumatic, hearing grossly normal bilaterally and moist oral mucous membranes Eyes PERRL, EOMs intact bilaterally and conjunctivae normal Neck no lymphadenopathy, supple and no JVD Resp normal respiratory effort, no retractions, no use of accessory muscles and clear to auscultation bilaterally Cardio regular rate and regular rhythm GI normal to inspection, nondistended, normoactive bowel sounds, soft to palpation, non-tender and non-distended GI Narrative: Obese. Extremity normal to inspection, full ROM and no clubbing, cyanosis or edema Skin Skin Narrative: Patient has no evidence of rash, abscess, wounds or jaundice. Neuro oriented x3, CN's II-XII intact bilaterally, moves all extremities and no focal motor deficits Sensorium / Orientation: awake, alert, oriented to person, oriented to place and oriented to time Speech: speech normal Psych affect normal Results Medical Records Data Attestation: I reviewed the patient's medical records Lab / Micro Data Attestation: I reviewed the patient's lab results. Assessment & Plan Assessment/Plan (1) Unresponsive episode: (2) Adverse drug reaction: QUALIFIERS: Encounter type: initial encounter Qualified Code(s): T50.905A - Adverse effect of unspecified drugs, medicaments and biological substances, initial encounter (3) Obesity (BMI 30.0-34.9): (4) ADD (attention deficit disorder): QUALIFIERS: Attention deficit type: unspecified type Qualified Code(s): F98.8 - Other specified behavioral and emotional disorders with onset usually occurring in childhood and adolescence (5) Depression: QUALIFIERS: Depression Type: unspecified Qualified Code(s): F32.A - Depression, unspecified (6) History of migraine headaches: PLAN: Plan 1. Intermittent Unresponsiveness; due to suspected Adverse Drug Reaction to recently restarted semaglutide with residual concern for possible TIA/CVA, absence seizures and less likely conversion disorder - Admit to PCU under observation status. Check MRI of brain without contrast. Check EEG to evaluate for evidence of epileptiform discharges or signs of narcolepsy. Check echocardiogram to evaluate LVEF. Hold semaglutide as her previous ER physician suspected this as the culprit agent. Check TSH, B12, Lipid Profile, HgbA1c, NEHA and UDS. Finally, we will consult [facility] to help us with this challenging case with help appreciated in advance. 2. History of migraine headaches; on ubrogepant BID and galcanezumab monthly co mplicating #1 - Continue current treatment with ubropegant. 3. Obesity; with a BMI of 30.6 this admission; on semaglutide compounding #1 & #2 - Weight loss will be recommended with alternative agent if necessary. Semaglutide should not be restarted in any case. 4. ADD; on dexmethylphenidate twice daily - Continue current management with patient warned she may have to reschedule her doses if this problem persist in spite of negative workup. 5. Neuropathy; on gabapentin - Resume gabapentin as before. 7. Depression; on duloxetine - Maintain duloxetine as previous. 8. History of autoimmune psoriatic arthritis; on ixekizumab - Hold this agent while patient is hospitalized. 9. History of chronic maxillary and frontal sinusitis; s/p sinus surgery - Noted. 10. DVT prophylaxis - Lovenox 40 mg sq daily plus SCD's. Total time: Approximately (but not less than) 70 minutes. Charges/Coding Visit Charges OBSV E&M: 69621 Observ/hosp same date L2
--- NOTE | 2024-05-07 23:15 | ECHOD_ITS ---
Reason For Study Reason For Study: TIA/STROKE Procedure This was a 2D Doppler, Color Flow transthoracic echocardiogram. Exam performed portable in patient room. Left Ventricle Normal size and thickness. The left ventricular ejection fraction is 60 %. No evidence for diastolic dysfunction. Right Ventricle Normal right ventricle. Atria The left and right atria are normal. Bubble contrast study is negative for PFO/ASD. Mitral Valve Trivial mitral valve insufficiency. Tricuspid Valve Trivial tricuspid valve insufficiency. Unable to estimate RV systolic pressure due to insufficient tricuspid regurgitant envelope. Aortic Valve Trisinus/trileaflet aortic valve. Pulmonic Valve Trivial pulmonic valve insufficiency. Great Vessels Normal sized aortic root. Pericardium/Pleural No pericardial effusion. Medication Performed a rapid injection of agitated mix of 9 cc saline and 1cc air to assess for atrial septal defect. MMode/2D Measurements & Calculations LVIDd: 4.8 cm IVSd: 0.96 cm LVOT diam: 2.0 cm LVIDs: 3.6 cm LVPWd: 1.0 cm RVDd: 2.9 cm FS: 24.1 % LVOT area: 3.1 cm2 Ao root diam: 3.1 cm LAV(MOD-bp): 48.1 ml LVAd ap4: 27.5 cm2 LA dimension: 3.7 cm LAV(MOD-bp) Indexed: 25.2 ml/m2 LVLd ap4: 8.1 cm LAV(MOD-sp2): 47.1 ml EDV(MOD-sp4): 79.5 ml LAV(MOD-sp4): 44.5 ml EDV(sp4-el): 79.6 ml LVAs ap4: 16.4 cm2 LVLs ap4: 6.5 cm ESV(MOD-sp4): 35.5 ml ESV(sp4-el): 34.8 ml EF(MOD-sp4): 55.4 % EF(sp4-el): 56.3 % SV(MOD-sp4): 44.1 ml SV(sp4-el): 44.8 ml LA A4 area: 17.6 cm2 SI(MOD-sp4): 23.1 ml/m2 LA dimension(2D): 3.2 cm RA A4 area: 11.7 cm2 Time Measurements MV dec time: 0.27 sec Doppler Measurements & Calculations MV E max jonny: 58.4 cm/sec Lat Peak E' Jonny: 13.3 cm/sec Med Peak E' Jonny: 10.9 cm/sec MV A max jonny: 45.8 cm/sec E/E' lat: 4.4 E/E' med: 5.4 MV E/A: 1.3 MV V2 max: 64.8 cm/sec MV dec slope: 225.8 cm/sec2 Ao V2 max: 134.6 cm/sec MV max P.7 mmHg Ao max P.2 mmHg MV V2 mean: 47.8 cm/sec Ao V2 mean: 92.3 cm/sec MV mean P.97 mmHg Ao mean P.9 mmHg MV V2 VTI: 20.7 cm Ao V2 VTI: 25.6 cm MVA(VTI): 3.4 cm2 AV (velocity ratio): 0.89 BABATUNDE(I,D): 2.7 cm2 BABATUNDE(V,D): 2.6 cm2 LV V1 max: 112.4 cm/sec SV(LVOT): 69.8 ml PA V2 max: 103.3 cm/sec LV V1 max P.1 mmHg PA V2 mean: 78.3 cm/sec LV V1 mean P.1 mmHg LV V1 mean: 82.6 cm/sec LV V1 VTI: 22.8 cm PI end-d jonny: 79.6 cm/sec ECHO/Echo Complete Interpretation Summary The left ventricular ejection fraction is 60 %. No evidence for diastolic dysfunction. Bubble contrast study is negative for PFO/ASD. Ordering Physician: Negrito Fuentes Referring Physician: Jessica Raya M.D. Performed By: Zohreh Bear RCS
[2024-05-07] MEDS: 0.9% Normal Saline (1000mL) 1,000 ML 70 ML IV (23:47)
[2024-05-07] MEDS: 0.9% Saline Lock 10 ML Syringe IV (23:48)
[2024-05-07] MEDS: Aspirin 81 MG TAB.CHEW PO (23:48)
[2024-05-07] MEDS: Atorvastatin Calcium 80 MG Tablet PO (23:48)
[2024-05-08] VITALS (8 sets, daily range): BP systolic 106–130; BP diastolic 59–85; PULSE 76–88; RESP 16–18; TEMP 36.6–36.8; O2SAT 98–100; BMI 30.6
[2024-05-08 01:04] LABS: Alcohol, Blood (Medical)-Serum < 10.1 mg/dL (<=10.0)
[2024-05-08 01:19] LABS: Vitamin B12 544 pg/mL (180-914)
[2024-05-08 01:53] LABS: Hemoglobin A1c 5.3 % (<=5.6)
[2024-05-08 02:17] LABS: Amphetamine Urine NEGATIVE (<1000 ng/mL); Barbiturate Urine NEGATIVE (< 200 ng/mL); Benzodiazepine Urine NEGATIVE (< 200 ng/mL); Buprenorphine Urine NEGATIVE (< 200 ng/mL); Cocaine Urine NEGATIVE (< 300 ng/mL); Fentanyl, Urine NEGATIVE; Methadone Urine NEGATIVE (< 300 ng/mL); Opiates Urine NEGATIVE (< 300 ng/mL); Oxycodone, Urine NEGATIVE (< 100 ng/mL); PCP Urine NEGATIVE (< 25 ng/mL); THC Urine NEGATIVE (< 50 ng/mL)
[2024-05-08] MEDS: Enoxaparin 40 MG/0.4 ML Syringe SC (06:05)
[2024-05-08 07:51] LABS: Cholesterol 181 mg/dL (<=200); High Density Lipoprotein 47 mg/dL; Low Density Lipoprotein Calc. 116 mg/dL; Triglycerides 88 mg/dL; Very Low Density Lipoprotein 18 mg/dL (5-40); cholesterol:hdl ratio screen 3.84
--- NOTE | 2024-05-08 08:27 | PCM.PN.HOSP ---
Reason for Visit Reason for Visit: Intermittent unresponsiveness Subjective Subjective Patient states that over the last 3 days she has had episodes where she will have a change in her responsiveness in which she is unresponsive to voice but awakens quickly with tactile stimulus between 2 and 3 in the afternoon. She states that that about an hour after she takes her afternoon dose of Adderall for her ADHD. She has been on these medications and she has had no significant medication changes lately. Her PCP thought maybe it was lower with each seizure threshold with her Adderall being combined with Cymbalta however that does not really appear to be the case. It does not seem that the timing of this or the symptoms are consistent with seizure. She had another episode today between 2 and 3 in the afternoon. I have asked neurology to see her acutely during the episode. At the time her arms became weak and her eyes were closed and she was not responding to verbal stimulus however she responded very quickly to tactile stimulus. Objective Data Objective Data Vital Signs: Vital Signs Temp Pulse Resp BP Pulse Ox O2 Del Method 98.1 F 80 18 106/70 98 Room Air 05/08/24 05:30 05/08/24 05:30 05/08/24 05:30 05/08/24 05:30 05/08/24 08:17 05/08/24 08:17 Oxygen Delivery Method Room Air Weight: 83.4 kg Body Mass Index (BMI) 30.6 Intake & Output: Intake and Output for Last 24 Hours 05/06/24 05/07/24 05/08/24 23:59 23:59 23:59 Intake Total 60 / 60 Balance 60 / 60 Lab / Micro Data Labs: Laboratory Results - last 24 hr 05/07/24 01:50: Urine Opiates Screen NEGATIVE, U Buprenorphine Qual NEGATIVE, Ur Oxycodone Screen NEGATIVE, Urine Methadone Screen NEGATIVE, Urine Fentanyl Screen NEGATIVE, Ur Barbiturates Screen NEGATIVE, Ur Phencyclidine Scrn NEGATIVE, Ur Amphetamines Screen NEGATIVE, U Benzodiazepines Scrn NEGATIVE, Urine Cocaine Screen NEGATIVE, U Cannabinoids Screen NEGATIVE 05/08/24 00:17: Hemoglobin A1c 5.3 L, Vitamin B12 544, TSH 2.410, Ethyl Alcohol < 10.1 05/08/24 06:18: Triglycerides 88, Cholesterol 181, VLDL Cholesterol 18, HDL Cholesterol 47, Cholesterol/HDL Ratio 3.84 Physical Exam Narrative My exam was done earlier in the day prior to the event noted in the subjective portion of this note Const alert, oriented x3, no apparent distress, healthy appearing and well nourished; Negative for average body habitus Constitutional Narrative: Obese, white female, sitting up in bed, appears comfortable, nontoxic HEENT head/scalp atraumatic and moist oral mucous membranes Head and Scalp: normocephalic Resp normal respiratory effort, no retractions, no use of accessory muscles and clear to auscultation bilaterally Auscultation: Negative for rales, rhonchi or wheezes Cardio regular rate, regular rhythm, S1 normal heart sound, S2 normal heart sound, no murmurs, no rub, no gallops and no clicks GI normal to inspection, nondistended, normoactive bowel sounds, soft to palpation and non-tender Extremity no clubbing, cyanosis or edema Extremity Narrative: 2+ pedal and radial pulses Neuro oriented x3, moves all extremities and no focal motor deficits Speech: speech normal Psych affect normal Psych Narrative: Pleasant, eye contact is good patient interacts appropriately Assessment & Plan Assessment/Plan (1) Unresponsive episode: PLAN: Plan Intermittent altered mental status -Etiology is unclear -Has had an event for the last 3 days -Workup thus far has been unremarkable -MRI with and without contrast negative -EEG was unremarkable -Echocardiogram is pending -Will hold Adderall and Ozempic -Neurology is following-await further input History of migraines -Continue home medication as able -As needed Tylenol available ADHD -Patient has been taking Adderall twice daily -Not a new medication -Will hold for now given symptoms as this is not crucial medication while she is hospitalized History of autoimmune psoriatic arthritis -Hold home biologic agent Obesity -Restart home Ozempic after discharge Depression/anxiety -Continue home duloxetine -Continue gabapentin DVT prophylaxis -continue home Lovenox CODE STATUS -Full code Charges/Coding Visit Charges Inpatient E&M: 43980 Subs Hosp L2
[2024-05-08] MEDS: DULoxetine Hcl 60 MG Capsule PO (08:52)
[2024-05-08] MEDS: Aspirin 81 MG TAB.CHEW PO (08:52)
[2024-05-08] MEDS: DEXMETHYLPHENIDATE HCL 10 MG PO ×2 (08:52→14:49)
[2024-05-08] MEDS: Cholecalciferol (VIT D3) 25 MCG TABLET (1,000 UNITS) PO (08:52)
[2024-05-08] MEDS: Gabapentin 300 MG Capsule PO (10:03)
--- NOTE | 2024-05-08 10:56 | MRI_ITS ---
EXAM: BRAIN W/WO CONTRAST CLINICAL HISTORY: CVA rule out COMPARISON: None. TECHNIQUE: PROCEDURE: Multiplanar sequences of the brain were obtained on a 1.5 Carmen MRI system, including T1, T2, FLAIR, DWI, and ADC. No intravenous contrast was administered. FINDINGS: MRI BRAIN: No intraparenchymal hemorrhage is evident. No focus of restricted diffusion is identified to suggest acute or early subacute ischemia. There is no extra-axial fluid collection, mass effect, or shift of midline structures. The basal cisterns are visualized. The ventricles and cortical sulci are in proportion and consistent with the patient's age. There is no signal abnormality in the cardoza or white matter. The midline structures demonstrate normal contours. The craniocervical junction is unremarkable. The flow voids of the large intracranial vessels are normal. The calvarium is unremarkable. The paranasal sinuses and mastoid air cells are clear. MRI/Brain W/WO Contrast IMPRESSION: No MR evidence of acute ischemia. Reading Location: [facility]
--- NOTE | 2024-05-08 11:06 | NEURO.CONS ---
Assessment and Plan: Neuro Assessment/Plan This is a 44-year-old female with a past medical history of ADD, migraine headaches, autoimmune arthritis on ixekizumab (interleukin 17A) who presented to [facility] on 05/08/23 for episodes of decreased responsiveness. Neurologic examination is normal. Routine EEG normal. MRI brain pending. Differential at this time includes medication side effect (semaglutide decreases gastric emptying and may be increasing effect of gabapentin or cymbalta), cardiac arrhythmia, narcolepsy. Seizure seems less likely based on description. 1. Recommend MRI brain WITH AND WITHOUT contrast. Recommend contrasted study given immuosuppressed status on IL17 inhibitor. 2. Cardiac monitoring and TTE 3. If work-up unrevealing, consideration for outpatient sleep study to assess for narcolepsy HPI Consult Data Date of Consult: 05/08/24 HPI Narrative HPI Narrative: This is a 44-year-old female with a past medical history of ADD, migraine headaches, autoimmune arthritis on ixekizumab (interleukin 17A) who presented to [facility] on 05/08/23 for episodes of decreased responsiveness. Symptom onset 05/05/24 when she was at [employer]. Developed sensation of lightheaded like she was going to pass out, similar to when blood glucose is low but she had just eaten lunch. She got into the car and called her to describe her symptoms but felt better and was able to drive and hop picker her kids and take them into the dentist. She got one kid checked in and then fell asleep in the car. Checked the other one in and then fell asleep. She then drove back home and fell asleep. When came up, he stated she sounded stoned, like she had taken more Neurontin than typical (she had not) 05/06, she was working at her laptop. She went into talk to her and the suddenly felt spacy and off. She notified PCP and was able to get a zoom meeting within the next hour. PCP thought may be blood sugar or medication (recently started semaglutide), plan to continue to monitor. Yesterday 05/07 she was in her normal state of health and was traveling in the car with her driving on the way to her niece?s birthday constitution party, she was answering e-mails in the car and then suddenly she stopped responding. looked over and her eyes were closed, and mouth was open. After this event she called PCP and was instructed to go into the ED for further evaluation. All 3 episodes occured between 2-3pm. She does have migraine headache; migraine headaches have been changing in that she has more ocular symptoms with migraines. She follows with a neurologist. Recently underwent 7T MRI imaging to rule out multiple sclerosis. [facility] Medical History (Updated 05/07/24 @ 23:[address] Negrito Fuentes DO) ADD (attention deficit disorder) Migraine Home Medications ?Medication ?Instructions ?Recorded ?Last Taken ?Type cholecalciferol (vitamin D3) 25 25 mcg PO DAILY supplement 05/07/24 05/07/24 History mcg (1,000 unit) capsule (Vitamin D3) dexmethylphenidate 10 mg 10 mg PO BID add 05/07/24 05/07/24 History capsule,extended release [id number] duloxetine 60 mg capsule,delayed 60 mg PO DAILY mood 05/07/24 05/07/24 History release gabapentin 300 mg capsule 300 mg PO DAILY nerve 05/07/24 05/07/24 History galcanezumab-gnlm 120 mg/mL 120 mg subcut QMONTH migraine 05/07/24 04/24/24 History subcutaneous pen injector (Emgality Pen) ixekizumab 80 mg/mL subcutaneous 80 mg subcut QMONTH arthritis 05/07/24 04/09/24 History auto-injector (Taltz Autoinjector) semaglutide 0.25 mg or 0.5 mg (2 0.25 mg subcut QWEEK weight loss 05/07/24 05/04/24 History mg/3 mL) subcutaneous pen injector (Ozempic) ubrogepant 100 mg tablet (Ubrelvy) 100 mg PO BID PRN migrane 05/07/24 05/07/24 History Allergy/AdvReac Type Severity Reaction Status Date / Time cephalexin monohydrate (From Allergy Unknown Verified 09/26/17 13:47 Keflex) latex Allergy Rash Verified 09/26/17 13:47 Surgical History Hx of sinus surgery Hx of oral surgery Social History Smoking Status: Never smoker Vital Signs Vital Signs Vital Signs: 05/07/24 21:47 05/07/24 22:00 05/07/24 23:30 Temperature 98.1 F Temperature Source Temporal Pulse Rate 84 Pulse Strength Normal (2+) Respiratory Rate 16 Respiratory Effort Respiratory Depth Respiratory Pattern Blood Pressure 130/72 H Blood Pressure Mean 91 Blood Pressure Source Monitor Blood Pressure Position Semi-Fowlers Blood Pressure Location Left Arm Pulse Ox 98 Oxygen Delivery Method Room Air Room Air 05/08/24 01:45 05/08/24 04:20 05/08/24 05:30 Temperature 98.2 F 98.1 F Temperature Source Oral Oral Pulse Rate 76 80 Pulse Strength Respiratory Rate 16 18 Respiratory Effort Respiratory Depth Respiratory Pattern Blood Pressure 107/59 L 106/70 Blood Pressure Mean 75 82 Blood Pressure Source Monitor Monitor Blood Pressure Position Semi-Fowlers Semi-Fowlers Blood Pressure Location Left Arm Left Arm Pulse Ox 98 98 98 Oxygen Delivery Method Room Air Room Air Room Air 05/08/24 08:17 05/08/24 08:45 05/08/24 08:49 Temperature 97.9 F Temperature Source Oral Pulse Rate 76 Pulse Strength Respiratory Rate 16 Respiratory Effort Normal Non-Labored Respiratory Depth Normal Respiratory Pattern Normal Blood Pressure 112/60 Blood Pressure Mean 77 Blood Pressure Source Blood Pressure Position Blood Pressure Location Pulse Ox 98 98 Oxygen Delivery Method Room Air Room Air Room Air Weight Weight: 83.4 kg Body Mass Index (BMI) 30.6 EEG Results Procedure Details EEG Procedure Details: ROUTINE INPATIENT EEG ([facility]) DATE OF STUDY: 05/08/2024 HISTORY/INDICATION: not available TECHNICAL DESCRIPTION: 21 channel EEG recording with electrodes placed in the International 10-20 system with video. EEG DESCRIPTION: During maximal arousal the background consisted of a continuous and symmetric admixture of frequencies in all bands. Typical amplitudes were >20?V. There was a well-modulated posterior dominant rhythm (PDR) of 10Hz that blocked with eye opening. The anterior-posterior gradient was well organized. With drowsiness there was waxing/waning of the PDR, mild slowing of the background, and bursts of diffuse slowing. There was no transition to sleep. Photic stimulation did not evoked a driving response. Hyperventilation for 3 minutes with good effort resulted did not evoked any changes. No asymmetries or focal abnormalities were noted. No epileptiform discharges were seen. The EKG channel revealed no abnormalities. IMPRESSION: Normal awake/drowsy No EKG abnormality CLINICAL CORRELATION: This routine inpatient EEG was normal in wakefulness and drowsiness. Joo Raymundo MD EEG Attending Sagger Filler Department of Neurology, Epilepsy Division [facility] NIHSS NIHSS Nursing Documentation NIHSS Nursing Documentation: NIHSS: Ischemic Stroke/TIA Start: 05/07/24 23:26 Text: For PCU Patients: NIH and Neuro Check every 4 Status: Active hours, PRN and with change in RN caregiver. Freq: [id number] Protocol: Activity Type Activity Date Activity User E-sign Co-sign Detail Recorded Client Recorded Date Recorded By Document 05/08/24 08:45 MM [id number] 05/08/24 08:48 MM 05/08/24 08:45 NIH Stroke Scale [NIHSS] A score of 0 is normal or asymptomatic . Total possible score is 42. Inpatient: RN or Physician to activate a stroke alert for onset of new stroke symptoms or with NIHSS increase >/= 3 points. Following change in neurological status, NIHSS will be performed per physician order or more frequently PRN. -1a. Level of Consciousness Alert; keenly responsive -1b. LOC Questions Answers BOTH questions correctly. -1c. LOC Commands Performs both tasks correctly . -2. Best Gaze Normal -3. Visual No visual loss -4. Facial Palsy Normal symmetrical movements -5a. Left Arm No drift; arm holds 90 (or 45 ) degrees for full 10 seconds -5b. Right Arm No drift; arm holds 90 (or 45 ) degrees for full 10 seconds -6a. Left Leg No drift; leg holds 30-degree position for full 5 seconds -6b. Right Leg No drift; leg holds 30-degree position for full 5 seconds -7. Limb Ataxia Absent -8. Sensory Normal; no sensory loss -9. Best Language No aphasia; normal -10. Dysarthria Normal -11. Extinction and Inattention No abnormality -Total 0 Query Text:A score of 0 is normal or asymptomatic. Total possible score is 42 . ED: Notify Physician for NIHSS increase by > / = 3 points. Inpatient: RN or Physician to activate a stroke alert for NIHSS increase of > / = 3 points. Coma Scale [Assess] -Eye Opening Spontaneous -Motor Obeys Commands -Verbal Oriented [Total] -Coma Scale Total 15 Physical Exam Neuro Neuro Narrative: Mental Status: The patient was alert and oriented to person, place, month, and year Language: speech is fluent and without dysarthria. Naming and repletion are intact Cranial Nerves: Pupils are equal and reactive to light. EOMI, no nystagmus is appreciated, visual harkins full, face is symmetric at rest and with activation, hearing is intact to conversational tone, tongue protrudes midline. Facial sensation is intact to light touch, and equal bilaterally. Motor: ?All extremities are antigravity. No pronator drift noted in upper or lower extremities. Sensation- Intact to light touch bilaterally Coordination: No dysmetria on [id number], finger follow finger or [id number]-[id number]. No truncal ataxia Lab / Micro Data Labs: Laboratory Results - last 24 hr 05/07/24 01:50: Urine Opiates Screen NEGATIVE, U Buprenorphine Qual NEGATIVE, Ur Oxycodone Screen NEGATIVE, Urine Methadone Screen NEGATIVE, Urine Fentanyl Screen NEGATIVE, Ur Barbiturates Screen NEGATIVE, Ur Phencyclidine Scrn NEGATIVE, Ur Amphetamines Screen NEGATIVE, U Benzodiazepines Scrn NEGATIVE, Urine Cocaine Screen NEGATIVE, U Cannabinoids Screen NEGATIVE 05/08/24 00:17: Hemoglobin A1c 5.3 L, Vitamin B12 544, TSH 2.410, Ethyl Alcohol < 10.1 05/08/24 06:18: Triglycerides 88, Cholesterol 181, VLDL Cholesterol 18, HDL Cholesterol 47, Cholesterol/HDL Ratio 3.84 Active Medications Active Medications Active Medications: Current Medications Generic Name Dose Route Start Last Admin Trade Name Freq PRN Reason Stop Dose Admin Acetaminophen 650 mg 05/07/24 23:26 Acetaminophen 325 Mg Tablet PO Q4H PRN PRN Pain 1-10 Or Fever>99.6 Aspirin 81 mg 05/08/24 08:00 05/08/24 08:52 Aspirin 81 Mg Tab.Chew PO 81 mg BREAKFAST MORIS Administration Atorvastatin Calcium 80 mg 05/07/24 23:15 05/07/24 23:48 Atorvastatin Calcium 80 Mg Tablet PO 80 mg QHS MORIS Administration Cholecalciferol 25 mcg 05/08/24 10:00 05/08/24 08:52 Cholecalciferol (Vit D3) 25 Mcg Tablet (1,000 Units) PO 25 mcg DAILY MORIS Administration Duloxetine HCl 60 mg 05/08/24 10:05/08/24 08:52 Duloxetine Hcl 60 Mg Capsule PO 60 mg DAILY MORIS Administration Enoxaparin Sodium 40 mg 05/08/24 06:00 05/08/24 06:05 Enoxaparin 40 Mg/0.4 Ml Syringe SC 40 mg DAILY@0600 MORIS Administration Gabapentin 300 mg 05/08/24 10:00 05/08/24 10:03 Gabapentin 300 Mg Capsule PO 300 mg DAILY MORIS Administration Sodium Chloride 100 mls @ 15 mls/hr 05/07/24 21:58 IV .Q6H40M PRN Saline Flush Sodium Chloride 100 mls @ 15 mls/hr 05/07/24 21:58 IV .Q6H40M PRN Additional IVPB Infusion Sodium Chloride 1,000 mls @ 70 mls/hr 05/07/24 23:15 05/07/24 23:47 IV 05/08/24 13:32 70 mls/hr .[id number] MORIS Administration Protocol Sodium Chloride 10 - 40 ml 05/07/24 21:58 05/07/24 23:48 0.9% Saline Lock 10 Ml Syringe IV 10 ml UD PRN Administration SALINE FLUSH
--- NOTE | 2024-05-08 13:17 | NURSING ---
NIH late due to patient being off floor at MRI
--- NOTE | 2024-05-08 15:23 | NURSING ---
Called back to patient room by family stating her arms are very heavy. Vitals stable, Dr Metzger made aware and came back to the room. Orders placed. Patient resting in room with family at side.
[2024-05-08 16:29] LABS: Bedside Glucose 118 mg/dL (74-106)
[2024-05-08] MEDS: Acetaminophen 325 MG Tablet 650 MG PO (16:50)
--- NOTE | 2024-05-08 16:59 | NURSING ---
Called into patient room by family again, patient completely passed out. Arousable to light touch but not to voice. VSS. Able to wake up and answer orientation questions but falls right back to sleep. Not able to lift arms or legs. No effort against gravity when extremities are lifted. Dr Metzger aware, ordered stat neuro consult. Patient resting in bed with family at side.
[2024-05-08] MEDS: Atorvastatin Calcium 80 MG Tablet PO (21:34)
[2024-05-09] VITALS (8 sets, daily range): BP systolic 105–125; BP diastolic 64–77; PULSE 70–92; RESP 16–18; TEMP 36.4–37.1; O2SAT 98–99
[2024-05-09] MEDS: Enoxaparin 40 MG/0.4 ML Syringe SC (05:47)
[2024-05-09 06:28] LABS: Hemoglobin 12.4 g/dL (12.0-15.0); Mean Corp Hgb Conc 32.6 g/dL (32-36); Mean Corpuscular Hgb 30.5 pg (27.0-32.0); Mean Corpuscular Volume 93.6 fL (81-99); Mean Platelet Vol. 9.6 fl (6.2-12.0); Platelet Count 254 K/mm3 (150-450); RBC Distribution Width CV 12.9 % (11.6-14.6); RBC Distribution Width SD 44.2 fl (35.1-43.9); Red Blood Count 4.06 M/mm3 (4.2-5.4); White Blood Count 4.4 K/mm3 (4.4-11.0)
[2024-05-09 06:54] LABS: Anion Gap 8 (5-15); BUN 15 mg/dL (4-19); BUN/Creat Ratio 21.2 RATIO (10-20); Calcium 8.9 mg/dL (7.6-11.0); Chloride 105 mmol/L (96-108); EST Glomerular Filtration Rate 109 (>60); Estimated Creatinine Clearance 109.38 ml/min (50-250); Glucose 87 mg/dL (70-99); Potassium 4.1 mmol/L (3.3-5.1); Sodium Level 139 mmol/L (133-145)
[2024-05-09] MEDS: Gabapentin 300 MG Capsule PO (08:35)
[2024-05-09] MEDS: Cholecalciferol (VIT D3) 25 MCG TABLET (1,000 UNITS) PO (08:37)
[2024-05-09] MEDS: DULoxetine Hcl 60 MG Capsule PO (08:37)
[2024-05-09] MEDS: Aspirin 81 MG TAB.CHEW PO (08:39)
[2024-05-09] MEDS: Acetaminophen 325 MG Tablet 650 MG PO (13:20)
--- NOTE | 2024-05-09 13:56 | NEURO.PNOTE ---
Assessment and Plan: Neuro Assessment/Plan JAROD HERRERA is a 44 F with a past medical history of migraines, concern for autoimmune disease, insulin resistant metabolic disorder, being evaluated by Teleneurology for repeated episodes of confusion, somnolence, and lightheadedness, currently are improving. Exam largely non-focal. She has had more events while in the hospital and labworkup and other evaluation has been unremarkable. Imaging without new MS-like lesions and no enhancing abnormalities. Diagnosis: concern for medication interaction Plan: - orthostatic vitals today normal as last two events in the hospital involved her rowdy sands. - followup with Neurologist at [facility] for evaluation of medication changes - check POC glucose at home with these events. I personally attended this patient and spent a total time of 45minutes evaluating this patient including clinical assessment, review of chart, medical history imaging, and determining appropriate treatment and workup. Subject: Neurology Subjective Pt had an event of lightheadedness and confusion yesterday, this AM with event of lightheadedness that improved with position change. She was sitting upright 90 degrees for both of these events. she started gabapentin and cymbalta at their current dosages last February (2023) and has not had changes in those medications. The last dose of her semiglutide was in January. She endorses a slight headache now that is improving. NIHSS NIHSS Nursing Documentation NIHSS Nursing Documentation: NIHSS: Ischemic Stroke/TIA Start: 05/07/24 23:26 Text: For PCU Patients: NIH and Neuro Check every 4 Status: Active hours, PRN and with change in RN caregiver. Freq: [id number] Protocol: Activity Type Activity Date Activity User E-sign Co-sign Detail Recorded Client Recorded Date Recorded By Document 05/09/24 13:00 ID [id number] 05/09/24 13:13 [place] 05/09/24 13:00 NIH Stroke Scale [NIHSS] A score of 0 is normal or asymptomatic . Total possible score is 42. Inpatient: RN or Physician to activate a stroke alert for onset of new stroke symptoms or with NIHSS increase >/= 3 points. Following change in neurological status, NIHSS will be performed per physician order or more frequently PRN. -1a. Level of Consciousness Alert; keenly responsive -1b. LOC Questions Answers BOTH questions correctly. -1c. LOC Commands Performs both tasks correctly . -2. Best Gaze Normal -3. Visual No visual loss -4. Facial Palsy Normal symmetrical movements -5a. Left Arm No drift; arm holds 90 (or 45 ) degrees for full 10 seconds -5b. Right Arm No drift; arm holds 90 (or 45 ) degrees for full 10 seconds -6a. Left Leg No drift; leg holds 30-degree position for full 5 seconds -6b. Right Leg No drift; leg holds 30-degree position for full 5 seconds -7. Limb Ataxia Absent -8. Sensory Normal; no sensory loss -9. Best Language No aphasia; normal -10. Dysarthria Normal -11. Extinction and Inattention No abnormality -Total 0 Query Text:A score of 0 is normal or asymptomatic. Total possible score is 42 . ED: Notify Physician for NIHSS increase by > / = 3 points. Inpatient: RN or Physician to activate a stroke alert for NIHSS increase of > / = 3 points. Coma Scale [Assess] -Eye Opening Spontaneous -Motor Obeys Commands -Verbal Oriented [Total] -Coma Scale Total 15 EEG Results Procedure Details EEG Procedure Details: JAROD HERRERA is a 44 year old F with a past medical history of , who presents for evaluation of Electroencephalogram on DATE at TIME Objective Data Objective Data Vital Signs: Vital Signs Temp Pulse Resp BP Pulse Ox O2 Del Method 97.6 F L 70 18 118/71 98 Room Air 05/09/24 13:15 05/09/24 13:15 05/09/24 13:15 05/09/24 13:15 05/09/24 13:15 05/09/24 13:15 Oxygen Delivery Method Room Air Weight: 83.4 kg Body Mass Index (BMI) 30.6 Intake & Output: Intake and Output for Last 24 Hours 05/07/24 05/08/24 05/09/24 23:59 23:59 23:59 Intake Total 1060 / 1060 400 / 400 Balance 1060 / 1060 400 / 400 Lab / Micro Data 05/09/24 05:25 05/09/24 05:25 Labs: Laboratory Results - last 24 hr 05/08/24 15:54: POC Glucose 118 H 05/09/24 05:25: WBC 4.4, RBC 4.06 L, Hgb 12.4, Hct 38.0, MCV 93.6, MCH 30.5, MCHC 32.6, RDW Std Deviation 44.2 H, RDW Coeff of Virgilio 12.9, Plt Count 254, MPV 9.6, Sodium 139, Potassium 4.1, Chloride Direct 105, Carbon Dioxide 26.0, Anion Gap 8, BUN 15, Creatinine 0.70, Estim Creat Clear Calc 109.38, Est GFR (MDRD) Non-Af 109, BUN/Creatinine Ratio 21.2 H, Glucose 87, Calcium 8.9 Radiography Diagnostic Testing: Radiology Impression Brain MRI 05/08/24 10:56 IMPRESSION: No MR evidence of acute ischemia. Reading Location: [place] Physical Exam Narrative -? NEURO: -? Mental Status: The patient was alert and oriented to time, place, and person. Normal recent/remote memory, concentration, and general fund of knowledge. -? Language: speech is clear.? Naming, repetition, fluency, and comprehension intact. -? Cranial Nerves: EOMI, visual harkins full, no facial asymmetry -? Motor: normal bulk, tone, and strength throughout. No pronator drift or satelliting. Upper and lower extremities equal bilaterally.
--- NOTE | 2024-05-09 15:47 | CHAPLAIN ---
Type of Pastoral Visit _x__ Initial Visit ___ Follow-up Visit ___ On-call Visit ___ General Patient Visit ___ Spiritual Assessment ___ Family Conference ___ Bereavement ___ Rapid Response ___ Code Blue ___ Other (describe below) Pastoral Care Referral From _x__ Patient ___ Family ___ Nurse ___ Physician ___ Craps Dealer ___ Journeyman Powerhouse Operator ___ Other (describe below) Sacrament/Intervention _x__ Active listening ___ Anointing ___ Latter-Day ___ Bereavement ___ Communion ___ Lita exploration ___ ___ Life review _x__ Prayer ___ Reconciliation ___ Sacrament of Sick ___ Supportive presence ___ Wedding ___ Other (describe below) Pastoral Comments patient is welcoming and explains her situation; pt is thankful that tests have not shown any concerns but her need for answers remain since she has had unexplained episodes; pt has supportive family with teenage children that will be cared for by her /their father; pt has good congregation connection for support and friends that can help; pt welcomes a prayer for extra encouragement today
--- NOTE | 2024-05-09 15:53 | PCM.PROGNOTE ---
Subjective Subjective Patient seen and examined. She was lying calmly in bed with her eyes closed, though she was responsive to voice call and sternal rub. She complains of feeling weak, and per her urse, had sttated today that she felt like she had another attack coming on. Review of systems is otherwise negative. Objective Data Objective Data Vital Signs: Vital Signs Temp Pulse Resp BP Pulse Ox O2 Del Method 97.6 F L 70 18 118/71 98 Room Air 05/09/24 13:15 05/09/24 13:15 05/09/24 13:15 05/09/24 13:15 05/09/24 13:15 05/09/24 13:15 Oxygen Delivery Method Room Air Weight: 183 lb 13.848 oz Body Mass Index (BMI) 30.6 Intake & Output: Intake and Output for Last 24 Hours 05/07/24 05/08/24 05/09/24 23:59 23:59 23:59 Intake Total 1060 / 1060 400 / 400 Balance 1060 / 1060 400 / 400 Lab / Micro Data 05/09/24 05:25 05/09/24 05:25 Labs: Laboratory Results - last 24 hr 05/08/24 15:54: POC Glucose 118 H 05/09/24 05:25: WBC 4.4, RBC 4.06 L, Hgb 12.4, Hct 38.0, MCV 93.6, MCH 30.5, MCHC 32.6, RDW Std Deviation 44.2 H, RDW Coeff of Virgilio 12.9, Plt Count 254, MPV 9.6, Sodium 139, Potassium 4.1, Chloride Direct 105, Carbon Dioxide 26.0, Anion Gap 8, BUN 15, Creatinine 0.70, Estim Creat Clear Calc 109.38, Est GFR (MDRD) Non-Af 109, BUN/Creatinine Ratio 21.2 H, Glucose 87, Calcium 8.9 Radiography Diagnostic Testing: Radiology Impression Echocardiogram 05/07/24 23:15 Interpretation Summary The left ventricular ejection fraction is 60 %. No evidence for diastolic dysfunction. Bubble contrast study is negative for PFO/ASD. Ordering Physician: Negrito Fuentes Referring Physician: Jessica Raya M.D. Performed By: Zohreh Bear RCS Physical Exam Const alert and oriented x3 Constitutional Narrative: flat affect Orientation / Consciousness: lethargic HEENT normocephalic, head/scalp atraumatic and moist oral mucous membranes Eyes PERRL and EOMs intact bilaterally Neck no lymphadenopathy and supple Lymph Lymphatic: no lymphadenopathy noted and no lymphedema noted Resp normal respiratory effort, normal air movement and clear to auscultation bilaterally Cardio regular rate, S1 normal heart sound, S2 normal heart sound and no murmurs GI normal to inspection, nondistended, normoactive bowel sounds, soft to palpation, non-tender and non-distended Extremity normal capillary refill, no clubbing, cyanosis or edema and no calf tenderness General Extremity: no tenderness to palpation of joints or extremities Skin General Skin Exam: no breakdown Neuro CN's II-XII intact bilaterally, no focal motor deficits and no sensory deficits noted Motor Exam: strength 5/5 throughout and general weakness Psych thought process normal and cooperative Appearance: appropriate Assessment & Plan Assessment/Plan (1) History of migraine headaches: (2) Depression: QUALIFIERS: Depression Type: unspecified Qualified Code(s): F32.A - Depression, unspecified (3) Unresponsive episode: PLAN: Plan #Intermittent encephalopathy Etiology of this is not clear. She says she has these episodic events of confusion and unresponsiveness which spontaneously resolved. EEG showed no evidence of seizure. MRI with and without contrast of brain has also been negative. 2D echo done today showed EF of 60% with no evidence of diastolic dysfunction and negative bubble study. Adderall and Ozempic on hold. Neurology on board and is similarly confounded. Per neurology, a new MS flare has been ruled out and so not sure if it is semaglutide causing the symptoms. Orthostatics also negative. Per neurology, may be medication related to 2 discussed with a neurologist at [facility] if her meds should be adjusted. PT OT on board. Fall precautions. #History of migraines: Continue current meds. Tylenol as needed #ADHD: Adderall held due to her intermittent episodes of confusion and unresponsiveness. #Obesity: On Ozempic which is currently on hold. Will continue holding until she follows up with a neurologist on outpatient basis. #Depression and anxiety: On duloxetine and gabapentin. DVT prophylaxis: Lovenox Disposition: anticipate dc over the next 24 hours Charges/Coding Visit Charges Inpatient E&M: 47384 Subs Hosp L2
[2024-05-09] MEDS: Atorvastatin Calcium 80 MG Tablet PO (21:10)
[2024-05-10 05:15] VITALS: BP 112/62; PULSE 88; RESP 18; TEMP 36.7; O2SAT 98
[2024-05-10 07:26] LABS: Absolute Lymphocyte Count 1.39 X10^3/uL (0.83-4.51); Absolute Neutrophil Count 2.3 X10^3/uL (2.0-7.7); Basophil# 0.06 X10^3/uL; Basophil% 1.3 % (0-1); Eosinophil# 0.22 X10^3/uL; Eosinophils% 4.9 % (0-5); Hematocrit 37.3 % (37-47); Hemoglobin 12.5 g/dL (12.0-15.0); Lymphocyte # 1.39 X10^3/ul (0.83-4.51); Lymphocyte % 30.9 % (19-41); Mean Corp Hgb Conc 33.5 g/dL (32-36); Mean Corpuscular Hgb 31.2 pg (27.0-32.0); Mean Platelet Vol. 9.6 fl (6.2-12.0); Monocyte# 0.53 X10^3/uL; Monocyte% 11.8 % (0-10); NRBC Flagged by Analyzer 0 % (0-5); Neutrophil # 2.29 X10^3/uL (2.7-7.7); Neutrophil % 50.9 % (47-70); Platelet Count 259 K/mm3 (150-450); RBC Distribution Width CV 13.1 % (11.6-14.6); RBC Distribution Width SD 43.9 fl (35.1-43.9); Red Blood Count 4.01 M/mm3 (4.2-5.4); White Blood Count 4.5 K/mm3 (4.4-11.0)
[2024-05-10 08:53] LABS: Anion Gap 11 (5-15); BUN 19 mg/dL (4-19); BUN/Creat Ratio 26.9 RATIO (10-20); Calcium,Total 8.4 mg/dL (7.6-11.0); Carbon Dioxide 22.4 mmol/L (21.0-32.0); Chloride 109 mmol/L (98-108); Creatinine, Serum 0.71 mg/dL (0.70-1.20); EST Glomerular Filtration Rate 108 (>60); Estimated Creatinine Clearance 107.84 ml/min (50-250); Glucose 107 mg/dL (70-99); Potassium 3.7 mmol/L (3.3-5.1); Sodium Level 142 mmol/L (133-145)
[2024-05-10 10:48] VITALS: BP 117/77; PULSE 87; RESP 16; TEMP 36.7; O2SAT 97
[2024-05-10] MEDS: Cholecalciferol (VIT D3) 25 MCG TABLET (1,000 UNITS) PO (10:51)
[2024-05-10] MEDS: DULoxetine Hcl 60 MG Capsule PO (10:51)
[2024-05-10] MEDS: Acetaminophen 325 MG Tablet 650 MG PO (11:03)
[2024-05-10] MEDS: Gabapentin 300 MG Capsule PO (11:03)
[2024-05-10 12:41] VITALS: BMI 30.6
--- NOTE | 2024-05-10 13:23 | DCINST_ITS ---
Discharge Instructions Diet Discharge Diet: Low fat / Low cholesterol DC O2, CPAP, BIPAP needs Home O2 Discharge instructions: No Dressing / Incision Discharge Activity: Return to Normal Activity Weight Bearing Status: Weight bearing as tolerated Dressing / Incision Call your doctor if you observe: Fever of 101 or Higher, Shortness of breath, Dizziness, Swelling in the ankles and Chest pain Follow Up Care Test Results: Test results from this visit will be discussed in further detail at your follow- up appointment, if applicable. Discharge Plan Admission Admit Date/Time: 05/07/24 23:06 Primary Reason for Your Visit: encephalopathy Attending Provider: Annie Siegel Primary Care Provider: Jessica Raya Consulting Providers: Cate Mckoy; Stefanie Elizabeth; Lillie Alvarado; Mannie Barragan; Ronald Camargo; Aleena Khna; RAMÓN NERI; Marika Osman; Melissa Winchester; Joo Raymundo; Saskia Mccrary; Zaire Randall; Melisa Metzger Instructions Patient Instructions: ED Confusion Discharge Orders/Prescriptions Prescriptions: Continued Emgality Pen 120 mg/mL pen injector 120 mg subcut QMONTH cholecalciferol (vitamin D3) [Vitamin D3] 25 mcg (1,000 unit) capsule 25 mcg PO DAILY duloxetine 60 mg capsule,delayed release(DR/EC) 60 mg PO DAILY gabapentin 300 mg capsule 300 mg PO DAILY Ubrelvy 100 mg tablet 100 mg PO BID PRN Patient Comments: TAKE 1 TABLET AT ONSET OF MIGRANE-MAY REPEAT IN 2HRS IF NEEDED Taltz Autoinjector 80 mg/mL auto-injector 80 mg SUBCUT QMONTH Patient Comments: [NO ORIGINAL SIG] Held dexmethylphenidate 10 mg capsule,ER biphasic 50-50 10 mg PO BID Hold Instructions: Resume on 05/31/24. hold until you follow up with your neurologist at [facility] to see if dose should be adjusted or medication stopped Patient Comments: [NO ORIGINAL SIG] Discontinued Ozempic 0.25 mg or 0.5 mg (2 mg/3 mL) pen injector 0.25 mg subcut QWEEK Rx Instructions: for 4 weeks Referrals / Follow Up: Jessica Raya MD [Primary Care Provider] - Within 1 Week Disposition Disposition (needs filled in before D/C Order can be placed): Home, Self Care
--- NOTE | 2024-05-10 13:23 | PCM.DC.SUM ---
Providers Date of Admission: 05/07/24 Date of Discharge: 05/10/24 Primary Care Physician: Dr. Jessica Raya MD Reason For Visit: INTERMITTEND UNRESPONSIVENESS Diagnosis Discharge Diagnosis (1) History of migraine headaches: Status: Acute Code(s): Z86.69 - Personal history of other diseases of the nervous system and sense organs (2) Depression: Status: Acute Code(s): F32.A - Depression, unspecified Qualifiers: Depression Type: unspecified Qualified Code(s): F32.A - Depression, unspecified (3) Unresponsive episode: Status: Acute Code(s): R40.4 - Transient alteration of awareness Plan #Intermittent encephalopathy Etiology of this is not clear. She says she has these episodic events of confusion and unresponsiveness which spontaneously resolved. EEG showed no evidence of seizure. MRI with and without contrast of brain has also been negative. 2D echo done today showed EF of 60% with no evidence of diastolic dysfunction and negative bubble study. Adderall and Ozempic on hold. Neurology on board and is similarly confounded. Per neurology, a new MS flare has been ruled out and so not sure if it is semaglutide causing the symptoms. Orthostatics also negative. Per neurology, may be medication related to 2 discussed with a neurologist at [facility] if her meds should be adjusted. PT OT on board. Fall precautions. #History of migraines: Continue current meds. Tylenol as needed #ADHD: Adderall held due to her intermittent episodes of confusion and unresponsiveness. #Obesity: On Ozempic which is currently on hold. Will continue holding until she follows up with a neurologist on outpatient basis. #Depression and anxiety: On duloxetine and gabapentin. DVT prophylaxis: Lovenox Disposition: anticipate dc over the next 24 hours Medications at Discharge Home Medications cholecalciferol (vitamin D3) 25 mcg (1,000 unit) capsule (Vitamin D3) 25 mcg PO DAILY supplement 05/07/24 dexmethylphenidate 10 mg capsule,extended release [id number] 10 mg PO BID add 05/07/24 Held on 05/10/24. Instructions: Resume on 05/31/24. hold until you follow up with your neurologist at [facility] to see if dose should be adjusted or medication stopped duloxetine 60 mg capsule,delayed release 60 mg PO DAILY mood 05/07/24 gabapentin 300 mg capsule 300 mg PO DAILY nerve 05/07/24 galcanezumab-gnlm 120 mg/mL subcutaneous pen injector (Emgality Pen) 120 mg subcut QMONTH migraine 05/07/24 ixekizumab 80 mg/mL subcutaneous auto-injector (Taltz Autoinjector) 80 mg subcut QMONTH arthritis 05/07/24 ubrogepant 100 mg tablet (Ubrelvy) 100 mg PO BID PRN migrane 05/07/24 Hospital Course Operations None Procedures 2-D Echocardiogram Summary of Care Provided Minutes Spent on Discharge: 47 Hospital Course: Patient is a 44-year-old female with past medical history as outlined was admitted through the ED on 05/07/2024 with a complaint of weakness and tiredness as well as profound fatigue and debility. Had symptoms that started on May 05, 2024. He was awake out of her below. [place] very weak and tired and had to hold onto the counter to prevent herself from falling. She went to the car and says she fell asleep for brief periods in her car. Symptoms subsequently recurred when she took her children to the dentist and went to sit in her car and spontaneously fell asleep. She had another episode of this on Thursday, May 06, 2024. On Thursday, May 07, 2024 she says she was eating a meal from [employer] and suddenly felt weak and tired again and fell asleep. She did not have any history of drug use or any other such episodes. She had had similar symptoms when she took her Adderall on the day of admission. She contacted her PCP and she was told to come into the ED for evaluation. CT of the brain showed no acute intracranial pathology. Labs were otherwise unremarkable. She had recently been started on semaglutide also. There was therefore concern that this could be related to the semaglutide. She was therefore sent to the ED to be evaluated for episodic encephalopathy concerning for TIA versus absence seizure's or narcolepsy. Neurology was consulted. She had an EEG of the brain which showed no evidence of any seizure disorder. 2D echo done showed EF of 60% with no evidence of diastolic dysfunction and bubble contrast study was negative. Neurology was consulted and reviewed patient and per neurology thought it was likely concerning for narcolepsy versus side effect of her Adderall and semaglutide. MRI of the brain showed no evidence of any lesions or stroke. Patient symptoms subsequently resolved and on the day of admission 05/10/2024 she felt much better and worked well with therapy. Neurology advised that patient should hold off on taking her Adderall till she followed up with her neurologist at [facility] for them to advise whether she should continue with this or not. Her semaglutide was also discontinued due to concerns that it could be contributing to her symptoms. She is to follow-up with her primary care doctor and urologist within 1 to 2 weeks. Patient seen and examined prior to discharge. She felt much better and had no complaints. She had had an uneventful night. Review of systems otherwise negative. Labs and vitals reviewed. Home medication reviewed and reconciled. Physical Exam Const alert, oriented x3, no apparent distress, average body habitus, healthy appearing and well nourished General Appearance: cooperative and comfortable Orientation / Consciousness: lethargic Exam Limitations: no limitations HEENT normocephalic, head/scalp atraumatic, hearing grossly normal bilaterally and moist oral mucous membranes Eyes PERRL, EOMs intact bilaterally and conjunctivae normal Neck no lymphadenopathy, supple and no JVD Lymph Lymphatic: no lymphadenopathy noted and no lymphedema noted Resp normal respiratory effort, normal air movement, no retractions, no use of accessory muscles and clear to auscultation bilaterally Cardio regular rate, regular rhythm, S1 normal heart sound, S2 normal heart sound, no murmurs, no rub and no gallops GI normal to inspection, nondistended, normoactive bowel sounds, soft to palpation, non-tender and non-distended GI Narrative: Obese. Extremity normal to inspection, full ROM, normal capillary refill, no clubbing, cyanosis or edema and no calf tenderness Extremity Narrative: 2+ pedal and radial pulses General Extremity: no tenderness to palpation of joints or extremities Skin Skin Narrative: Patient has no evidence of rash, abscess, wounds or jaundice. General Skin Exam: no breakdown Neuro oriented x3, CN's II-XII intact bilaterally, moves all extremities, no focal motor deficits and no sensory deficits noted Sensorium / Orientation: awake, alert, oriented to person, oriented to place and oriented to time Speech: speech normal Motor Exam: strength 5/5 throughout and general weakness Psych thought process normal, cooperative and affect normal Psych Narrative: Pleasant, eye contact is good patient interacts appropriately Appearance: appropriate Weight / BMI Weight Weight: 183 lb 13.848 oz Body Mass Index (BMI) 30.6 ABG / Lab / Microbiology Data 05/10/24 06:47 05/10/24 06:47 Laboratory: Laboratory Results - last 24 hr 05/10/24 06:47: WBC 4.5, RBC 4.01 L, Hgb 12.5, Hct 37.3, MCV 93.0, MCH 31.2, MCHC 33.5, RDW Std Deviation 43.9, RDW Coeff of Virgilio 13.1, Plt Count 259, MPV 9.6, Immature Gran % (Auto) 0.200, Neut % (Auto) 50.9, Lymph % (Auto) 30.9, [place] % (Auto) 11.8 H, Eos % (Auto) 4.9, Baso % (Auto) 1.3 H, Absolute Neuts (auto) 2.3, Absolute Lymphs (auto) 1.39, Nucleated RBC % 0, Sodium 142, Potassium 3.7, Chloride 109 H, Carbon Dioxide 22.4, Anion Gap 11, BUN 19, Creatinine 0.71, Estim Creat Clear Calc 107.84, Est GFR (MDRD) Non-Af 108, BUN/Creatinine Ratio 26.9 H, Glucose 107 H, Calcium 8.4 Radiography Diagnostic Testing: Radiology Impression Echocardiogram 05/07/24 23:15 Interpretation Summary The left ventricular ejection fraction is 60 %. No evidence for diastolic dysfunction. Bubble contrast study is negative for PFO/ASD. Ordering Physician: Negrito Fuentes Referring Physician: Jessica Raya M.D. Performed By: Zohreh Bear RCS D/C Instructions Discharge Diet: Low fat / Low cholesterol Discharge Activity: Return to Normal Activity Weight Bearing Status: Weight bearing as tolerated Call your doctor if you observe: Fever of 101 or Higher, Shortness of breath, Dizziness, Swelling in the ankles and Chest pain DC O2, CPAP, BIPAP Needs Home O2 Discharge instructions: No DC home with Oxygen: No Meaningful Use Info Meaningful Use Meaningful Use Diagnoses (Choose all that apply): None applicable Ischemic Stroke Statin Dosing Therapy Reference: STATIN DOSE THERAPY REFERENCE: * Patients > 75 years receive moderate or high dose statin therapy. * Patients 75 years or YOUNGER should receive HIGH intensity statin dose unless contraindicated. You will be required to document reason for non-treatment if statin daily dose does not meet guidelines. HIGH DOSE STATIN THERAPY DAILY Atorvastatin > than or = to 40 mg Rosuvastatin > than or = to 20 mg Amlodipine + Atorvastatin > than or = to 2.5/40 mg Ezetimibe + Simvastatin 10/80 mg Simvastatin 80mg Discharge Plan Admission Admit Date/Time: 05/07/24 23:06 Primary Reason for Your Visit: encephalopathy Attending Provider: Annie Siegel Primary Care Provider: Jessica Raya Consulting Providers: Cate Mckoy; Stefanie Elizabeth; Lillie Alvarado; Mannie Barragan; Ronald Camargo; Aleena Khan; RAMÓN NERI; Marika Osman; Melissa Winchester; Joo Raymundo; Saskia Mccrary; Zaire Randall; Melisa Metzger Instructions Patient Instructions: ED Confusion Discharge Orders/Prescriptions Prescriptions: Continued Emgality Pen 120 mg/mL pen injector 120 mg subcut QMONTH cholecalciferol (vitamin D3) [Vitamin D3] 25 mcg (1,000 unit) capsule 25 mcg PO DAILY duloxetine 60 mg capsule,delayed release(DR/EC) 60 mg PO DAILY gabapentin 300 mg capsule 300 mg PO DAILY Ubrelvy 100 mg tablet 100 mg PO BID PRN Patient Comments: TAKE 1 TABLET AT ONSET OF MIGRANE-MAY REPEAT IN 2HRS IF NEEDED Taltz Autoinjector 80 mg/mL auto-injector 80 mg SUBCUT QMONTH Patient Comments: [NO ORIGINAL SIG] Held dexmethylphenidate 10 mg capsule,ER biphasic 50-50 10 mg PO BID Hold Instructions: Resume on 05/31/24. hold until you follow up with your neurologist at [facility] to see if dose should be adjusted or medication stopped Patient Comments: [NO ORIGINAL SIG] Discontinued Ozempic 0.25 mg or 0.5 mg (2 mg/3 mL) pen injector 0.25 mg subcut QWEEK Rx Instructions: for 4 weeks Referrals / Follow Up: Jessica Raya MD [Primary Care Provider] - Within 1 Week Disposition Disposition (needs filled in before D/C Order can be placed): Home, Self Care Charges/Coding Visit Charges Inpatient E&M: 10797 Disch Hosp >30min
--- NOTE | 2024-05-10 13:58 | CASEMGMT ---
Patient has order for discharge. RN CM in to discuss needs at discharge. Patient denies needs or help at discharge. Patient had no further questions or concerns.
--- NOTE | 2024-05-10 14:22 | PHA.DC.MR.R ---
Pharmacy [place] Med Reconciliation Pharmacy Service has performed discharge medication reconciliation for this patient. The patient's discharge medication list was reviewed for discrepancies and discrepancies were resolved. Medications at Discharge Home Medications cholecalciferol (vitamin D3) 25 mcg (1,000 unit) capsule (Vitamin D3) 25 mcg PO DAILY supplement 05/07/24 dexmethylphenidate 10 mg capsule,extended release -94 10 mg PO BID add 05/07/24 Held on 05/10/24. Instructions: Resume on 05/31/24. hold until you follow up with your neurologist at [facility] to see if dose should be adjusted or medication stopped duloxetine 60 mg capsule,delayed release 60 mg PO DAILY mood 05/07/24 gabapentin 300 mg capsule 300 mg PO DAILY nerve 05/07/24 galcanezumab-gnlm 120 mg/mL subcutaneous pen injector (Emgality Pen) 120 mg subcut QMONTH migraine 05/07/24 ixekizumab 80 mg/mL subcutaneous auto-injector (Taltz Autoinjector) 80 mg subcut QMONTH arthritis 05/07/24 ubrogepant 100 mg tablet (Ubrelvy) 100 mg PO BID PRN migrane 05/07/24
[2024-05-10 14:36] VITALS: BP 122/78; PULSE 79; RESP 16; O2SAT 99
== END 2024-05-10 14:56 | disposition home or self-care (01) ==
PROVIDERS: Internal Medicine; PCP Internal Medicine; Visit Provider Student in an Organized Health Care Education/Training Program
DX: R40.4 Transient alteration of awareness (principal); L40.59 Other psoriatic arthropathy; R53.1 Weakness; R29.898 Other symptoms and signs involving the musculoskeletal system; F90.9 Attention-deficit hyperactivity disorder, unspecified type; G43.909 Migraine, unspecified, not intractable, without status migrainosus; F32.A Depression, unspecified; Z68.30 Body mass index [BMI] 30.0-30.9, adult; R53.81 Other malaise; F41.9 Anxiety disorder, unspecified; E66.9 Obesity, unspecified; Z79.899 Other long term (current) drug therapy; G62.9 Polyneuropathy, unspecified
CPT/HCPCS: 36415; 70553; 80048; 80061; 80307; 82077; 82607; 82962; 83036; 84443; 85025; 85027; 92610; 93306; 94762; 95819; 96372; 97530; 97802; 99221; A9575; A4216; G0378; G0379